=== PATIENT | female | born 1945 | race Hispanic/Latino ===

== ENCOUNTER 2018-02-14 06:39 | Day surgery (SDC) | payer MEDICARE ==
[2018-02-13 12:28] VITALS: BMI 28.6
[2018-02-14] MEDS ORDERED: Midazolam 2 MG/2 ML VIAL ONE (08:55)
[2018-02-14] MEDS ORDERED: Propofol 10 mg/ml Inj (20 ML) ONE ×2 (08:55→10:13)
[2018-02-14 11:14] VITALS: TEMP 97.8
[2018-02-14 12:24] VITALS: BP 133/71; PULSE 80; RESP 17; O2SAT 96
== END 2018-02-14 12:05 | disposition home or self-care (01) ==
LOC: C.ENDO 06:39
PROVIDERS: ATTEND Internal Medicine Gastroenterology
DX: Z12.11 Encounter for screening for malignant neoplasm of colon (principal); K64.1 Second degree hemorrhoids; K57.30 Diverticulosis of large intestine without perforation or abscess without bleeding; K63.5 Polyp of colon; D12.5 Benign neoplasm of sigmoid colon; D12.3 Benign neoplasm of transverse colon; E11.9 Type 2 diabetes mellitus without complications; I10 Essential (primary) hypertension; E78.5 Hyperlipidemia, unspecified; Z79.84 Long term (current) use of oral hypoglycemic drugs; Z79.899 Other long term (current) drug therapy; I25.2 Old myocardial infarction; E55.9 Vitamin D deficiency, unspecified; Z86.010 Personal history of colon polyps; Z87.891 Personal history of nicotine dependence
CPT/HCPCS: 45380; 45381; 45385; 82948; 88305; J2001; J2250; J2704

== ENCOUNTER 2018-05-30 07:54 | Day surgery (SDC) | payer MEDICARE ==
[2018-02-13 12:33] VITALS: BMI 28.6
[2018-05-30] MEDS ORDERED: Sodium Chloride 0.9% 500 ML IV ONE (08:58)
--- NOTE | 2018-05-30 09:48 | CP.SDSHP ---
Same Day Surgery H & P - History Proposed Procedure: colonoscopy Pre-Op Diagnosis: history of colon polyps - Previous Medical/Surgical History Cardiac: Hypertension Endocrine/Metabolic: Diabetes Comments: hyperlipidemia - Allergies Allergies: Allergies No Known Allergies Allergy (Verified 05/30/18 08:14) - Physical Exam General Appearance: NAD Vital Signs: Vital Signs 05/30/18 08:14 Temperature 99.6 F Pulse Rate 96 H Respiratory 17 Rate Blood Pressure 136/74 O2 Sat by Pulse 97 Oximetry Mental Status: Alert & Oriented x3 Neuro: WNL Heart: WNL Lungs: WNL GI: WNL - {Optional Preform as Required} Abdomen: WNL - Impression Pt. Evaluated Today:Candidate for Anesthesia & Procedure: Yes - Date & Time Date: 05/30/18 Time: 09:48 Short Stay Discharge - Short Stay Discharge Admitting Diagnosis/Reason for Visit: H/O COLON POLYPS Disposition: HOME/ ROUTINE
[2018-05-30] MEDS ORDERED: Propofol 10 mg/ml Inj (20 ML) ONE ×4 (10:47→11:36)
[2018-05-30 12:03] VITALS: TEMP 97.1
[2018-05-30 12:43] VITALS: RESP 12; O2SAT 99
[2018-05-30 13:16] VITALS: BP 131/55; PULSE 84
== END 2018-05-30 13:00 | disposition home or self-care (01) ==
LOC: C.ENDO 07:54
PROVIDERS: ATTEND Internal Medicine Gastroenterology
DX: D12.5 Benign neoplasm of sigmoid colon (principal); Z86.010 Personal history of colon polyps; E11.9 Type 2 diabetes mellitus without complications; I10 Essential (primary) hypertension; K57.90 Diverticulosis of intestine, part unspecified, without perforation or abscess without bleeding; K64.8 Other hemorrhoids
CPT/HCPCS: 45380; 45385; 82948; 88305; J2704; J3010; J7030

== ENCOUNTER 2018-06-03 19:39 | Observation (INO) | payer MEDICARE ==
[2018-06-03 19:41] VITALS: BMI 28.6
--- NOTE | 2018-06-03 20:31 | C.PDOC ---
History Of Present Illness Patient is a 72 year old female, with a PMHx of HTN, HLD, diabetes, DC after D+C who presents to the ED c/o bloody stool that began today. Patient is s/p 4 days colonoscopy with polyp removal. She describes the stool as maroonish and bright red since this morning. She notes crampy abdominal pain but non currently. She denies any blood thinners, falls, trauma, fevers, chills, sweats, recent antibiotics, or diarrhea. Time Seen by Provider: 06/03/18 20:31 Chief Complaint (Nursing): Abdominal Pain History Per: Patient History/Exam Limitations: no limitations Onset/Duration Of Symptoms: Hrs Current Symptoms Are (Timing): Still Present Associated Symptoms: denies: Fever, Chills, Diarrhea Recent travel outside of the [place]: No Additional History Per: Patient Past Medical History Reviewed: Historical Data, Nursing Documentation, Vital Signs Vital Signs: Last Vital Signs Temp 98.7 F 06/03/18 20:04 Pulse 99 H 06/03/18 20:04 Resp 18 06/03/18 20:04 BP 135/85 06/03/18 20:04 Pulse Ox 97 06/03/18 20:04 - Medical History PMH: Asthma (NEVER HOSPITALIZED), Colonic Polyps, Depression, Diabetes, HTN, Hypercholesterolemia Denies: Chronic Kidney Disease Surgical History: Endoscopy Family History: States: No Known Family Hx - Social History Hx Alcohol Use: No Hx Substance Use: No - Immunization History Hx Tetanus Toxoid Vaccination: No Hx Influenza Vaccination: Yes Hx Pneumococcal Vaccination: No Review Of Systems Constitutional: Negative for: Fever, Chills, Sweats, Weakness, Malaise Eyes: Negative for: Pain, Vision Change, Conjunctivae Inflammation ENT: Negative for: Ear Pain, Ear Discharge, Nose Pain, Nose Congestion Cardiovascular: Negative for: Chest Pain, Palpitations, Paroxysmal Noc. Dyspnea Respiratory: Negative for: Cough, Shortness of Breath, SOB with Excertion Gastrointestinal: Positive for: Hematochezia. Negative for: Diarrhea Genitourinary: Negative for: Dysuria, Frequency, Incontinence Neurological: Negative for: Weakness, Numbness Physical Exam - Physical Exam Appears: Well, Non-toxic, No Acute Distress Skin: Warm, Dry Head: Atraumatic, Normacephalic Eye(s): bilateral: Normal Inspection, PERRL, EOMI Nose: Normal Oral Mucosa: Moist Tongue: Normal Appearing Lips: Normal Appearing Throat: Normal, No Erythema, No Exudate, No Drooling Neck: Normal, Normal ROM, Trachea Midline, Supple, Other (No meningeal sign's) Chest: Symmetrical Cardiovascular: Rhythm Regular, No Friction Rub Respiratory: No Rales, No Rhonchi, No Wheezing Gastrointestinal/Abdominal: Soft, No Tenderness, No Distention, No Guarding Rectal: Rectal Tone (normal), Maroon Stool, No Hemorrhoids, No Mass, No Tenderness Back: Normal Inspection, No CVA Tenderness, No Vertebral Tenderness Extremity: Bilateral: Normal Color And Temperature Pulses: Left Dorsalis Pedis: Normal, Right Dorsalis Pedis: Normal Neurological/Psych: Oriented x3, Normal Speech, Normal Cognition Gait: Steady ED Course And Treatment - Laboratory Results Result Diagrams: 06/03/18 20:42 06/03/18 20:42 O2 Sat by Pulse Oximetry: 97 (on RA) Pulse Ox Interpretation: Normal Medical Decision Making Medical Decision Making: Patient is a 72 year old female, with a PMHx of HTN, HLD, diabetes, who presents to the ED c/o bloody stool that began today. Patient is s/p 4 days colonoscopy with polyp removal. Maroon stool noted on rectal exam. Abd non-ttp but pt did note some crampy abdominal pain earlier today. No back pain. No fall or trauma. Plan: Urinalysis Labs VBG IV Fluids Impression: Colon Bleed 2129 appreciate consult w/ GI fellow on for Dr. Sunshine: OBS and GI will see in AM Appreciate consult w/ Dr. Moore (HOSP)- to admit to his service, I endorsed pending CT results pt in NAD, agreeable to plan protonix bolus and drip ordered. Disposition - Disposition Disposition Time: 21:38 Condition: GOOD Forms: [employer] (Omani) - Clinical Impression Clinical Impression: GI bleed
[2018-06-03 20:53] LABS: BASO # 0.1 K/uL (0.0-0.2); BASO % 0.7 % (0.0-2.0); EOS # 0.1 K/uL (0.0-0.7); EOS % 0.8 % (0.0-4.0); LYMPH # 1.9 K/uL (1.0-4.3); LYMPH % 24.5 % (20.0-40.0); MEAN CELL VOLUME 88.2 fL (81.0-99.0); MEAN CORPUSCULAR HEMOGLOBIN 29.2 pg (27.0-31.0); MEAN CORPUSCULAR HGB CONC 33.1 g/dL (33.0-37.0); MEAN PLATELET VOLUME 8.6 fL (7.2-11.7); MONO # 0.6 K/uL (0.0-0.8); MONO % 7.6 % (0.0-10.0); NEUT # 5.1 K/uL (1.8-7.0); NEUT % 66.4 % (50.0-75.0); NRBC % 0.2 % (0.0-2.0); RBC 4.81 Mil/uL (3.80-5.20); WHITE BLOOD COUNT 7.7 K/uL (4.8-10.8)
[2018-06-03 21:01] LABS: INR 1.1; PROTHROMBIN TIME 12.4 SECONDS (9.7-12.2)
[2018-06-03 21:02] LABS: VENOUS BLOOD GAS BASE EXCESS -3.6 mmol/L (0.0-2.0); VENOUS BLOOD GAS PCO2 47 mmHg (40-60); VENOUS BLOOD GAS PO2 23 mm/Hg (30-55)
[2018-06-03 21:05] LABS: ALB/GLOB RATIO 1.3 (1.0-2.1); ALBUMIN 4.1 g/dL (3.5-5.0); ALT/SGPT 65 U/L (9-52); AST/SGOT 49 U/L (14-36); BLOOD UREA NITROGEN 21 mg/dL (7-17); CALCIUM 9.6 mg/dl (8.6-10.4); GFR NON-AFRICAN AMERICAN > 60; LIPASE 176 U/L (23-300)
[2018-06-03] MEDS ORDERED: Sodium Chloride 0.9% 1,000 ML ONE (21:48)
[2018-06-03] MEDS: Sodium Chloride 0.9% 1,000 ML IV SCH (21:52)
[2018-06-03] MEDS ORDERED: Iohexol 300 100 ML IJ ONE (22:04)
[2018-06-03] MEDS: Pantoprazole 80 MG in Sodium Chloride 0.9% 100 ML IVP SCH (22:04)
--- NOTE | 2018-06-03 22:10 | CP.PCM.HP ---
<Christen Anderson P - Last Filed: 06/04/18 05:47> History of Present Illness - History of Present Illness History of Present Illness: Medicine H&P for Dr. Moore CC: Bloody bowel movement HPI: 72 year old female with PMHx of DM, previous NH, asthma presents to ED for evaluation of an episode of bloody diarrhea prior to arrival. Patient states half of the toilet bowel was filled with blood. Associated symptoms include mild lower abdominal cramping, weakness, and dizziness. She also had one episode of vomiting, non bloody, non bilious. Patient denies fever, chills, chest pain, palpitations, and shortness of breath. Patient is status post colonoscopy on 05/30/[address] Sunshine. She called his office and was told to come into ED. PMHx: DM, NH in 1993, asthma PSHx: Colonsocopy x2 with polypectomy, diagnostic cardiac catheterization Meds: Sitagliptin, metformin 50-1000 BID, pravastatin 20mg HS, Multivitamin, Lisinopril 2.5mg daily, Glimepiride 4mg PO BID, duloxetine 50mg daily, Farxiga 5mg PO daily, Vitamin D3 5000u daily, Albuterol INH PRN Allergies: Denies FamHx: Parents-DM, alcoholism, father-stroke, mother heart disease SocHx: former smoker- 2-3ppd for 25 years, denies alcohol and illicit drugs. Lives with her dog, Retired realtor. PMD: Dr. Ervin Review of Systems: -Gen: No fever, No chills, No headache, No lethargy, + weakness. -HEENT: + dizziness, No change in vision, No change in hearing, No sore throat, No dysphagia, No nasal congestion, No mucous. -Cardio: No chest pain, No palpitations, No lower extremity edema, No orthopnea. -Resp: No cough, No dyspnea, No hemoptysis, No wheezing, No pain on inspiration. -GI: + abdominal pain, + nausea/vomiting, + diarrhea, + hematochezia, No hematemesis. -: No dysuria, No urinary freq, No incontinence, No hematuria, No change in urinary stream. -MSK: No back pain, No muscle weakness, No radiating pain. -Skin: No itching, No rash, No lesions. -Neuro: No confusion, No numbness, No tingling, No focal weakness, No radicular pain, No syncope. -Psych: No anxiety, No depression, No H/I, No S/I, No hallucinations. Present on Admission - Present on Admission Any Indicators Present on Admission: No Past Patient History - Past Medical History & Family History Past Medical History?: Yes - Past Social History Smoking Status: Never Smoked - CARDIAC Hx Hypercholesterolemia: Yes Hx Hypertension: Yes - PULMONARY Hx Asthma: Yes (NEVER HOSPITALIZED) - NEUROLOGICAL Hx Neurological Disorder: No - HEENT Hx HEENT Problems: No - RENAL Hx Chronic Kidney Disease: No - ENDOCRINE/METABOLIC Hx Endocrine Disorders: Yes Hx Diabetes Mellitus Type 2: Yes - HEMATOLOGICAL/ONCOLOGICAL Hx Blood Disorders: No - INTEGUMENTARY Hx Dermatological Problems: No - MUSCULOSKELETAL/RHEUMATOLOGICAL Hx Musculoskeletal Disorders: No - GASTROINTESTINAL Hx Gastrointestinal Disorders: Yes Hx Ulcer: Yes (GASTRIC ULCER) Other/Comment: HX: LPM AND ABD. APIN - GENITOURINARY/GYNECOLOGICAL Hx Genitourinary Disorders: Yes Hx Urinary Tract Infection: Yes (NONE RECENTLY) - PSYCHIATRIC Hx Depression: Yes Hx Substance Use: No - SURGICAL HISTORY Hx Surgeries: Yes Hx Cardiac Catheterization: Yes Hx Dilation and Curettage: Yes - ANESTHESIA Hx Anesthesia: Yes Hx Anesthesia Reactions: Yes (VOMITING/heart attack following D&C) Hx Malignant Hyperthermia: No Meds Allergies/Adverse Reactions: Allergies Allergy/AdvReac Type Severity Reaction Status Date / Time No Known Allergies Allergy Verified 06/03/18 20:08 Physical Exam - Constitutional Appears: Non-toxic, No Acute Distress - Head Exam Head Exam: ATRAUMATIC, NORMOCEPHALIC - Eye Exam Eye Exam: EOMI, Normal appearance, PERRL Additional comments: No conjunctival pallor - ENT Exam ENT Exam: Mucous Membranes Moist - Neck Exam Neck exam: Positive for: Full Rom, Normal Inspection - Respiratory Exam Respiratory Exam: Chest Wall Tenderness, Clear to Auscultation Bilateral, NORMAL BREATHING PATTERN. absent: Rales, Rhonchi, Wheezes - Cardiovascular Exam Cardiovascular Exam: Tachycardia, +S1, +S2 - GI/Abdominal Exam GI & Abdominal Exam: Normal Bowel Sounds, Soft. absent: Distended, Guarding, Rebound, Tenderness - Rectal Exam Rectal Exam: Black Stool (maroon/black) - Extremities Exam Extremities exam: Positive for: full ROM, normal capillary refill, normal inspection, pedal pulses present. Negative for: calf tenderness, pedal edema, tenderness - Neurological Exam Neurological exam: Alert, CN II-XII Intact, Oriented x3 - Psychiatric Exam Psychiatric exam: Normal Affect, Normal Mood - Skin Skin Exam: Dry, Normal Color, Warm Results - Vital Signs Recent Vital Signs: Last Vital Signs Temp 98.7 F 06/03/18 20:04 Pulse 99 H 06/03/18 20:04 Resp 18 06/03/18 20:04 BP 135/85 06/03/18 20:04 Pulse Ox 97 06/03/18 21:39 - Labs Result Diagrams: 06/04/18 04:00 06/04/18 04:00 Labs: Laboratory Results - last 24 hr 06/03/18 06/03/18 06/03/18 20:42 20:42 20:42 WBC 7.7 RBC 4.81 Hgb 14.0 Hct 42.4 MCV 88.2 MCH 29.2 MCHC 33.1 RDW 13.0 Plt Count 279 MPV 8.6 Neut % (Auto) 66.4 Lymph % (Auto) 24.5 Stanton % (Auto) 7.6 Eos % (Auto) 0.8 Baso % (Auto) 0.7 Neut # (Auto) 5.1 Lymph # (Auto) 1.9 Stanton # (Auto) 0.6 Eos # (Auto) 0.1 Baso # (Auto) 0.1 PT 12.4 H INR 1.1 APTT 30 pO2 VBG pH VBG pCO2 VBG HCO3 VBG Total CO2 VBG O2 Sat (Calc) VBG Base Excess VBG Potassium Glucose Lactate Sodium 134 Potassium 4.7 Chloride 99 Carbon Dioxide 23 Anion Gap 17 BUN 21 H Creatinine 0.6 L Est GFR ( Amer) > 60 Est GFR (Non-Af Amer) > 60 POC Glucose (mg/dL) Random Glucose 340 H Calcium 9.6 Total Bilirubin 0.5 AST 49 H ALT 65 H Alkaline Phosphatase 104 Total Protein 7.1 Albumin 4.1 Globulin 3.0 Albumin/Globulin Ratio 1.3 Lipase 176 Venous Blood Potassium Stool Occult Blood Blood Type Antibody Screen 06/03/18 06/03/18 06/03/18 20:42 20:48 20:55 WBC RBC Hgb Hct MCV MCH MCHC RDW Plt Count MPV Neut % (Auto) Lymph % (Auto) Stanton % (Auto) Eos % (Auto) Baso % (Auto) Neut # (Auto) Lymph # (Auto) Stanton # (Auto) Eos # (Auto) Baso # (Auto) PT INR APTT pO2 23 L VBG pH 7.30 L VBG pCO2 47 VBG HCO3 20.4 VBG Total CO2 24.5 VBG O2 Sat (Calc) 44.1 VBG Base Excess -3.6 L VBG Potassium 4.3 Glucose 278 H Lactate 1.6 Sodium 138.0 Potassium Chloride 105.0 Carbon Dioxide Anion Gap BUN Creatinine Est GFR ( Amer) Est GFR (Non-Af Amer) POC Glucose (mg/dL) 315 H Random Glucose Calcium Total Bilirubin AST ALT Alkaline Phosphatase Total Protein Albumin Globulin Albumin/Globulin Ratio Lipase Venous Blood Potassium 4.3 Stool Occult Blood Blood Type O POSITIVE Antibody Screen Negative 06/03/18 21:12 WBC RBC Hgb Hct MCV MCH MCHC RDW Plt Count MPV Neut % (Auto) Lymph % (Auto) Stanton % (Auto) Eos % (Auto) Baso % (Auto) Neut # (Auto) Lymph # (Auto) Stanton # (Auto) Eos # (Auto) Baso # (Auto) PT INR APTT pO2 VBG pH VBG pCO2 VBG HCO3 VBG Total CO2 VBG O2 Sat (Calc) VBG Base Excess VBG Potassium Glucose Lactate Sodium Potassium Chloride Carbon Dioxide Anion Gap BUN Creatinine Est GFR ( Amer) Est GFR (Non-Af Amer) POC Glucose (mg/dL) Random Glucose Calcium Total Bilirubin AST ALT Alkaline Phosphatase Total Protein Albumin Globulin Albumin/Globulin Ratio Lipase Venous Blood Potassium Stool Occult Blood Positive H Blood Type Antibody Screen Assessment & Plan - Assessment and Plan (Free Text) Assessment: 72 year old female with PMHx of DM, previous NH, asthma presents to ED for evaluation of an episode of bloody diarrhea Plan: GI bleed Stool occult blood + Hemoglobin 14 Type and screen NPO Protonix drip IVF @ 100 mls/hr GI consult Hx DM Insulin SS Hold home meds Crestor 5mg PO daily lisinopril 2.5mg PO daily Hx Asthma Albuterol 2puff PRN Hx depression Duloxetine 60mg daily PPx Protonix drip SCD VTE contraindicated, GI bleed Discussed with Dr. Teresa Anderson, PGY-1 <Romeo Moore Satinder - Last Filed: 06/04/18 06:23> Results - Vital Signs Recent Vital Signs: Last Vital Signs Temp 98.1 F 06/04/18 06:09 Pulse 93 H 06/04/18 06:09 Resp 18 06/04/18 06:09 BP 127/71 06/04/18 06:09 Pulse Ox 94 L 06/04/18 06:09 - Labs Result Diagrams: 06/04/18 04:00 06/04/18 04:00 Labs: Laboratory Results - last 24 hr 06/03/18 06/03/18 06/03/18 20:42 20:42 20:42 WBC 7.7 RBC 4.81 Hgb 14.0 Hct 42.4 MCV 88.2 MCH 29.2 MCHC 33.1 RDW 13.0 Plt Count 279 MPV 8.6 Neut % (Auto) 66.4 Lymph % (Auto) 24.5 Stanton % (Auto) 7.6 Eos % (Auto) 0.8 Baso % (Auto) 0.7 Neut # (Auto) 5.1 Lymph # (Auto) 1.9 Stanton # (Auto) 0.6 Eos # (Auto) 0.1 Baso # (Auto) 0.1 PT 12.4 H INR 1.1 APTT 30 pO2 VBG pH VBG pCO2 VBG HCO3 VBG Total CO2 VBG O2 Sat (Calc) VBG Base Excess VBG Potassium Glucose Lactate Sodium 134 Potassium 4.7 Chloride 99 Carbon Dioxide 23 Anion Gap 17 BUN 21 H Creatinine 0.6 L Est GFR ( Amer) > 60 Est GFR (Non-Af Amer) > 60 POC Glucose (mg/dL) Random Glucose 340 H Calcium 9.6 Total Bilirubin 0.5 AST 49 H ALT 65 H Alkaline Phosphatase 104 Total Protein 7.1 Albumin 4.1 Globulin 3.0 Albumin/Globulin Ratio 1.3 Lipase 176 Venous Blood Potassium Stool Occult Blood Blood Type Antibody Screen 06/03/18 06/03/18 06/03/18 20:42 20:48 20:55 WBC RBC Hgb Hct MCV MCH MCHC RDW Plt Count MPV Neut % (Auto) Lymph % (Auto) Stanton % (Auto) Eos % (Auto) Baso % (Auto) Neut # (Auto) Lymph # (Auto) Stanton # (Auto) Eos # (Auto) Baso # (Auto) PT INR APTT pO2 23 L VBG pH 7.30 L VBG pCO2 47 VBG HCO3 20.4 VBG Total CO2 24.5 VBG O2 Sat (Calc) 44.1 VBG Base Excess -3.6 L VBG Potassium 4.3 Glucose 278 H Lactate 1.6 Sodium 138.0 Potassium Chloride 105.0 Carbon Dioxide Anion Gap BUN Creatinine Est GFR ( Amer) Est GFR (Non-Af Amer) POC Glucose (mg/dL) 315 H Random Glucose Calcium Total Bilirubin AST ALT Alkaline Phosphatase Total Protein Albumin Globulin Albumin/Globulin Ratio Lipase Venous Blood Potassium 4.3 Stool Occult Blood Blood Type O POSITIVE Antibody Screen Negative 06/03/18 06/04/18 06/04/18 21:12 01:54 04:00 WBC 5.8 RBC 4.44 Hgb 13.1 Hct 38.5 MCV 86.8 MCH 29.4 MCHC 33.9 RDW 13.1 Plt Count 253 MPV 7.9 Neut % (Auto) 49.0 L Lymph % (Auto) 39.1 Stanton % (Auto) 10.2 H Eos % (Auto) 0.2 Baso % (Auto) 1.5 Neut # (Auto) 2.9 Lymph # (Auto) 2.3 Stanton # (Auto) 0.6 Eos # (Auto) 0.0 Baso # (Auto) 0.1 PT INR APTT pO2 VBG pH VBG pCO2 VBG HCO3 VBG Total CO2 VBG O2 Sat (Calc) VBG Base Excess VBG Potassium Glucose Lactate Sodium Potassium Chloride Carbon Dioxide Anion Gap BUN Creatinine Est GFR ( Amer) Est GFR (Non-Af Amer) POC Glucose (mg/dL) 249 H Random Glucose Calcium Total Bilirubin AST ALT Alkaline Phosphatase Total Protein Albumin Globulin Albumin/Globulin Ratio Lipase Venous Blood Potassium Stool Occult Blood Positive H Blood Type Antibody Screen 06/04/18 04:00 WBC RBC Hgb Hct MCV MCH MCHC RDW Plt Count MPV Neut % (Auto) Lymph % (Auto) Stanton % (Auto) Eos % (Auto) Baso % (Auto) Neut # (Auto) Lymph # (Auto) Stanton # (Auto) Eos # (Auto) Baso # (Auto) PT INR APTT pO2 VBG pH VBG pCO2 VBG HCO3 VBG Total CO2 VBG O2 Sat (Calc) VBG Base Excess VBG Potassium Glucose Lactate Sodium 139 Potassium 4.6 Chloride 106 Carbon Dioxide 25 Anion Gap 13 BUN 18 H Creatinine 0.5 L Est GFR ( Amer) > 60 Est GFR (Non-Af Amer) > 60 POC Glucose (mg/dL) Random Glucose 218 H D Calcium 9.0 Total Bilirubin 0.6 AST 46 H ALT 61 H Alkaline Phosphatase 83 Total Protein 6.7 Albumin 3.8 Globulin 2.9 Albumin/Globulin Ratio 1.3 Lipase Venous Blood Potassium Stool Occult Blood Blood Type Antibody Screen Assessment & Plan - Date & Time Date: 06/04/18 (I have seen and examined the patient. I agree with the findings and plan of care as documented by Dr. Anderson. Patient with GI bleed, s/p colonoscopy. Consult to GI. Hemodynamically stable. NPO. Protonix. History of diabetes. NISS and accuchecks. Monitor for acute changes.) Time: 06:21 Attending/Attestation - Attestation I have personally seen and examined this patient.: Yes I have fully participated in the care of the patient.: Yes I have reviewed all pertinent clinical information: Yes
[2018-06-04] MEDS ORDERED: Dextrose 50% SYRINGE Inj (50 ml) IV PRN (00:31)
[2018-06-04] MEDS ORDERED: Glucagon Recombinant 1 mg Inj IM PRN ×2 (00:31→07:41)
[2018-06-04] MEDS: (Novolin R) Insulin Human Regular 100 units/ml vial SC SCH ×2 (01:57→08:50)
[2018-06-04] MEDS ORDERED: Albuterol HFA 90 mcg/actuation (8 g) INH PRN ×2 (03:01→07:42)
[2018-06-04 04:03] LABS: BASO # 0.1 K/uL (0.0-0.2); BASO % 1.5 % (0.0-2.0); EOS % 0.2 % (0.0-4.0); HEMOGLOBIN 13.1 g/dL (11.0-16.0); LYMPH # 2.3 K/uL (1.0-4.3); LYMPH % 39.1 % (20.0-40.0); MEAN CELL VOLUME 86.8 fL (81.0-99.0); MEAN CORPUSCULAR HEMOGLOBIN 29.4 pg (27.0-31.0); MEAN CORPUSCULAR HGB CONC 33.9 g/dL (33.0-37.0); MEAN PLATELET VOLUME 7.9 fL (7.2-11.7); MONO # 0.6 K/uL (0.0-0.8); MONO % 10.2 % (0.0-10.0); NEUT # 2.9 K/uL (1.8-7.0); NRBC % 0.1 % (0.0-2.0); RBC 4.44 Mil/uL (3.80-5.20); RED CELL DISTRIBUTION WIDTH 13.1 % (11.5-14.5); WHITE BLOOD COUNT 5.8 K/uL (4.8-10.8)
[2018-06-04 04:22] LABS: ALB/GLOB RATIO 1.3 (1.0-2.1); ALBUMIN 3.8 g/dL (3.5-5.0); ALT/SGPT 61 U/L (9-52); AST/SGOT 46 U/L (14-36); BLOOD UREA NITROGEN 18 mg/dL (7-17); GFR NON-AFRICAN AMERICAN > 60
[2018-06-04] MEDS: Pantoprazole 80 MG in Sodium Chloride 0.9% 100 ML IVP SCH (05:55)
--- NOTE | 2018-06-04 07:33 | CP.PCM.PN ---
<Adelina Alfaro - Last Filed: 06/04/18 16:20> Subjective - Date & Time of Evaluation Date of Evaluation: 06/04/18 Time of Evaluation: 07:33 - Subjective Subjective: PGY-1 Adelina Alfaro D.O. Medicine progress note for Dr. Jennings's service: Patient was seen and examined this morning. Patient says she feels fine. She denies any more BMs with blood since admission. She denies abdominal pain. She denies urinary symptoms, including dysuria and hematuria. She says that she has never had a blood transfusion before. She already spoke to GI, and she is amenable to endoscopy if further bleeding episodes. Objective - Vital Signs/Intake and Output Vital Signs (last 24 hours): Temp Pulse Resp BP Pulse Ox 98.1 F 93 H 18 127/71 94 L 06/04/18 06:09 06/04/18 06:09 06/04/18 06:09 06/04/18 06:09 06/04/18 06:09 - Medications Medications: Current Medications Albuterol (Ventolin Hfa 90 Mcg/Actuation (8 G)) 2 puff INH PRN PRN PRN Reason: Shortness of Breath Dextrose (Dextrose 50% Inj) 0 ml IV STAT PRN; Protocol PRN Reason: Hypoglycemia Protocol Dextrose (Glutose 15) 0 gm PO ONCE PRN; Protocol PRN Reason: Hypoglycemia Protocol Duloxetine HCl (Cymbalta) 60 mg PO DAILY JOY Glucagon (Glucagen Diagnostic Kit) 0 mg IM STAT PRN; Protocol PRN Reason: Hypoglycemia Protocol Sodium Chloride (Sodium Chloride 0.9%) 1,000 mls @ 100 mls/hr IV .Q10H JOY Last Admin: 06/03/18 21:52 Dose: 100 mls/hr Pantoprazole Sodium 80 mg/ (Sodium Chloride) 100 mls @ 10 mls/hr IVP .Q10H JOY Last Admin: 06/04/18 05:55 Dose: 10 mls/hr Dextrose (Dextrose 5% In Water 1000 Ml) 1,000 mls @ 0 mls/hr IV .Q0M PRN; Protocol PRN Reason: Hypoglycemia Protocol Insulin Human Regular (Novolin R) 0 unit SC Q6H JOY; Protocol Last Admin: 06/04/18 01:57 Dose: Not Given Lisinopril (Zestril) 2.5 mg PO DAILY JOY Rosuvastatin Calcium (Crestor) 5 mg PO HS JOY - Labs Labs: 06/04/18 04:00 06/04/18 04:00 PT 12.4 SECONDS (9.7-12.2) H 06/03/18 20:42 INR 1.1 06/03/18 20:42 APTT 30 SECONDS (21-34) 06/03/18 20:42 - Constitutional Appears: Non-toxic, No Acute Distress - Head Exam Head Exam: ATRAUMATIC, NORMAL INSPECTION - Eye Exam Eye Exam: EOMI, Normal appearance - ENT Exam ENT Exam: Mucous Membranes Moist - Respiratory Exam Respiratory Exam: Clear to Ausculation Bilateral, NORMAL BREATHING PATTERN - Cardiovascular Exam Cardiovascular Exam: RRR, +S1, +S2 - GI/Abdominal Exam GI & Abdominal Exam: Soft. absent: Distended, Tenderness - Extremities Exam Extremities Exam: Normal Inspection - Neurological Exam Neurological Exam: Alert, Awake, CN II-XII Intact, Oriented x3 - Psychiatric Exam Psychiatric exam: Normal Affect, Normal Mood - Skin Skin Exam: Dry, Normal Color, Warm. absent: Pallor Assessment and Plan - Assessment and Plan (Free Text) Assessment: Patient is a 72 year old female with T2DM, previous IN, and asthma who presented with bloody diarrhea. Patient had a colonoscopy on 05/30/18 for polyp removal after a screening colonoscopy was unsuccessful. Plan: GI bleed - CT A/P: no acute findings - Stool occult blood positive - Hgb 14--> 12 over 24 hrs - Repeat CBC at 10 PM - Transfuse PRN - Monitor on telemetry - Type and screen - Clear liquid diet - Protonix drip--> Protonix 40 mg IV Q12H - NS @ 100 cc/hr - GI consulted (Jong)- consider scope if continued bleeding Hypertension, chronic - Vitals Q6H - Hold Lisinopril Type 2 diabetes mellitus, chronic - Accuchecks ACHS - Range 170-310 - Hypoglycemia protocol - ISS - Hold home meds - Crestor 5 mg PO QHS Asthma, mild intermittent, chronic - CXR: no active disease - Duoneb Q6H PRN Depression, chronic - Duloxetine 60 mg PO daily Ppx: VTE: SCD, chemical anticoagulation contraindicated in setting of bleed GI: Protonix 40 mg IV Q12H Diet: Clear liquids Case discussed with attending, Dr. Jennings. <Ankita Jennings V - Last Filed: 06/04/18 19:38> Objective - Vital Signs/Intake and Output Vital Signs (last 24 hours): Temp Pulse Resp BP Pulse Ox 98.7 F 99 H 20 139/64 95 06/04/18 15:40 06/04/18 17:02 06/04/18 15:40 06/04/18 15:40 06/04/18 15:40 Intake and Output: 06/04/18 06/05/18 18:59 06:59 Intake Total 800 Balance 800 - Medications Medications: Current Medications Albuterol/Ipratropium (Duoneb 3 Mg/0.5 Mg (3 Ml) Ud) 3 ml INH RQ6 PRN PRN Reason: Shortness of Breath Dextrose (Dextrose 50% Inj) 0 ml IV STAT PRN; Protocol PRN Reason: Hypoglycemia Protocol Dextrose (Glutose 15) 0 gm PO ONCE PRN; Protocol PRN Reason: Hypoglycemia Protocol Dextrose (Dextrose 50% Inj) 0 ml IVP .STAT PRN; Protocol PRN Reason: Hypoglycemia Protocol Dextrose (Glutose 15) 0 gm PO .ONCE PRN; Protocol PRN Reason: Hypoglycemia Protocol Duloxetine HCl (Cymbalta) 60 mg PO DAILY [facility] Last Admin: 06/04/18 11:55 Dose: Not Given Glucagon (Glucagen Diagnostic Kit) 0 mg IM STAT PRN; Protocol PRN Reason: Hypoglycemia Protocol Glucagon (Glucagen Diagnostic Kit) 0 mg IM .STAT PRN; Protocol PRN Reason: Hypoglycemia Protocol Sodium Chloride (Sodium Chloride 0.9%) 1,000 mls @ 100 mls/hr IV .Q10H JOY Last Admin: 06/04/18 07:40 Dose: 100 mls/hr Dextrose (Dextrose 5% In Water 1000 Ml) 1,000 mls @ 0 mls/hr IV .Q0M PRN; Protocol PRN Reason: Hypoglycemia Protocol Dextrose (Dextrose 5% In Water 1000 Ml) 1,000 mls @ 0 mls/hr IV .Q0M PRN; Protocol PRN Reason: Hypoglycemia Protocol Insulin Aspart (Novolog) 0 unit SC ACHS JOY; Protocol Last Admin: 06/04/18 17:07 Dose: Not Given Lisinopril (Zestril) 2.5 mg PO DAILY [facility] Pantoprazole Sodium (Protonix Inj) 40 mg IVP Q12H [facility] Last Admin: 06/04/18 11:57 Dose: 40 mg Pneumococcal Polyvalent Vaccine (Pneumovax 23 Vaccine) 0.5 ml IM .ONCE ONE Stop: 06/06/18 10:01 Rosuvastatin Calcium (Crestor) 5 mg PO HS [facility] - Labs Labs: 06/04/18 15:21 06/04/18 04:00 PT 12.4 SECONDS (9.7-12.2) H 06/03/18 20:42 INR 1.1 06/03/18 20:42 APTT 30 SECONDS (21-34) 06/03/18 20:42 Attending/Attestation - Attestation I have personally seen and examined this patient.: Yes I have fully participated in the care of the patient.: Yes I have reviewed all pertinent clinical information, including history, physical exam and plan: Yes Notes (Text): Patient seen and examined in the ED while awaiting a bed. Patient reports she is doing okay. Patient reports she had to call the office of Dr. Sunshine because she noted she had bleeding wherein stool was caked in blood. Patient has had recent colonoscopy and prior history of ulcer. Patient reports she had an IN in 1993, but had recent workup with cardiology noted no acute abnormalities. She does not take any aspirin nor plavix because of her ulcer history. Discussed with GI fellow, start diabetic clears and protonix 40mg IV Q12. Patient was consented for blood transfusion if H/H drops. Assessment/Plan 1. GI bleed Assessment/Plan * GI Dr. Sunshine on case help appreciated * Stool occult blood positive * Hgb 14--> 12 over 24 hrs * Monitor on telemetry * Type and screen * Clear liquid * Protonix 40 mg IV Q12H * NS @ 100 cc/hr * CT abdomen/pelvis (06/04/18): hepatomegaly with probable small cyst left lobe liver. 2.3 cm right adrenal mass for which follow-up nonemergent MRI of adrenal gland recommended. Diverticulosis without radiographic evidence of acute diverticulitis. Rule out enteritis. Presume hyperdense left renal cyst. 2. Hypertension, chronic Assessment/Plan * held kiran inhibitor in light of GI bleed 3. Type 2 diabetes mellitus, chronic Assessment/Plan * Accuchecks Q6H * Hypoglycemia protocol * Novolog subq 6H * Diabetic clears * Crestor 5 mg PO QHS 4. Asthma, mild intermittent, chronic Assessment/Plan * CXR: no active disease * Duoneb Q6H PRN shortness of breathe 5. History of Depression, chronic Assessment/Plan * Duloxetine 60 mg PO daily 6. History of Prior IN in 1993 Assessment/Plan * myocardial stress test 2018: normal myocardial perfusion study without evide nce of ischemia, normal LVEF 7. Prophylactic measure * fall precautions * bed side commode * IV fluids * diabetic clears Disposition: patient to monitor H/H recommended for GI intervention but is refusing.
[2018-06-04] MEDS: Sodium Chloride 0.9% 1,000 ML IV SCH (07:40)
[2018-06-04] MEDS ORDERED: Dextrose 50% SYRINGE Inj (50 ml) IVP PRN (07:41)
[2018-06-04] MEDS ORDERED: Pantoprazole 80 MG in Sodium Chloride 0.9% 100 ML IVPB SCH (08:15)
--- NOTE | 2018-06-04 08:32 | CP.PCM.CON ---
<Gricel Parson - Last Filed: 06/04/18 17:31> History of Present Illness - History of Present Illness History of Present Illness: Gastroenterology Fellow/PGY6 Consult Note 72 year old female with PMH of HTN, HLD, Diabetes, and CKD presenting with rectal bleeding. Patient notes onset of urge to use the bathroom and abdominal cramps followed by two episodes of bright red blood per rectum with clots and two additional episodes 20 minutes later. Associated one episode of food/bilious vomiting after rectal bleeding. Denies lightheadedness, dizziness, chest pain, shortness of breath, abdominal pain, diarrhea, constipation, or unintentional weight loss. Denies NSAID or Aspirin use. Denies similar prior episodes of rectal bleeding. Recent colonoscopy 05/30/18 showed fair bowel prep, extensive diverticulosis, two 3-4mm semi-pedunculated hyperplastic ascending/sigmoid polyps with cold forceps resection, 2cm sessile tubular adenoma with saline- lift/hot snare resection, and Grade II internal hemorrhoids with recommended three year surveillance. Family History- denies stomach cancer, colon cancer Social History- denies tobacco, alcohol, illicit drug use Surgical History- D&C after [place] 1993 s/p cardiac cath Review of Systems - Review of Systems Review of Systems: 12-point review of systems negative except for as above Past Patient History - Past Medical History & Family History Past Medical History?: Yes - Past Social History Smoking Status: Never Smoked - CARDIAC Hx Hypercholesterolemia: Yes Hx Hypertension: Yes - PULMONARY Hx Asthma: Yes (NEVER HOSPITALIZED) - NEUROLOGICAL Hx Neurological Disorder: No - HEENT Hx HEENT Problems: No - RENAL Hx Chronic Kidney Disease: No - ENDOCRINE/METABOLIC Hx Endocrine Disorders: Yes Hx Diabetes Mellitus Type 2: Yes - HEMATOLOGICAL/ONCOLOGICAL Hx Blood Disorders: No - INTEGUMENTARY Hx Dermatological Problems: No - MUSCULOSKELETAL/RHEUMATOLOGICAL Hx Musculoskeletal Disorders: No - GASTROINTESTINAL Hx Gastrointestinal Disorders: Yes Hx Ulcer: Yes (GASTRIC ULCER) Other/Comment: HX: LPM AND ABD. APIN - GENITOURINARY/GYNECOLOGICAL Hx Genitourinary Disorders: Yes Hx Urinary Tract Infection: Yes (NONE RECENTLY) - PSYCHIATRIC Hx Depression: Yes Hx Substance Use: No - SURGICAL HISTORY Hx Surgeries: Yes Hx Cardiac Catheterization: Yes Hx Dilation and Curettage: Yes - ANESTHESIA Hx Anesthesia: Yes Hx Anesthesia Reactions: Yes (VOMITING/heart attack following D&C) Hx Malignant Hyperthermia: No Meds Allergies/Adverse Reactions: Allergies Allergy/AdvReac Type Severity Reaction Status Date / Time No Known Allergies Allergy Verified 06/03/18 20:08 - Medications Medications: Current Medications Albuterol (Ventolin Hfa 90 Mcg/Actuation (8 G)) 2 puff INH Q6H PRN PRN Reason: Shortness of Breath Dextrose (Dextrose 50% Inj) 0 ml IV STAT PRN; Protocol PRN Reason: Hypoglycemia Protocol Dextrose (Glutose 15) 0 gm PO ONCE PRN; Protocol PRN Reason: Hypoglycemia Protocol Dextrose (Dextrose 50% Inj) 0 ml IVP .STAT PRN; Protocol PRN Reason: Hypoglycemia Protocol Dextrose (Glutose 15) 0 gm PO .ONCE PRN; Protocol PRN Reason: Hypoglycemia Protocol Duloxetine HCl (Cymbalta) 60 mg PO DAILY JOY Glucagon (Glucagen Diagnostic Kit) 0 mg IM STAT PRN; Protocol PRN Reason: Hypoglycemia Protocol Glucagon (Glucagen Diagnostic Kit) 0 mg IM .STAT PRN; Protocol PRN Reason: Hypoglycemia Protocol Sodium Chloride (Sodium Chloride 0.9%) 1,000 mls @ 100 mls/hr IV .Q10H JOY Last Admin: 06/03/18 21:52 Dose: 100 mls/hr Dextrose (Dextrose 5% In Water 1000 Ml) 1,000 mls @ 0 mls/hr IV .Q0M PRN; Protocol PRN Reason: Hypoglycemia Protocol Dextrose (Dextrose 5% In Water 1000 Ml) 1,000 mls @ 0 mls/hr IV .Q0M PRN; Protocol PRN Reason: Hypoglycemia Protocol Pantoprazole Sodium 80 mg/ (Sodium Chloride) 100 mls @ 10 mls/hr IVPB .Q10H JOY Insulin Human Regular (Novolin R) 0 unit SC Q6H JOY; Protocol Last Admin: 06/04/18 01:57 Dose: Not Given Lisinopril (Zestril) 2.5 mg PO DAILY JOY Rosuvastatin Calcium (Crestor) 5 mg PO HS JOY Physical Exam - Constitutional Appears: Non-toxic, No Acute Distress - Head Exam Head Exam: ATRAUMATIC, NORMOCEPHALIC - Eye Exam Eye Exam: EOMI, PERRL. absent: Scleral icterus Pupil Exam: PERRL. absent: Miosis, Mydriatic - ENT Exam ENT Exam: Mucous Membranes Moist, Normal Oropharynx - Neck Exam Neck exam: Positive for: Full Rom, Normal Inspection - Respiratory Exam Respiratory Exam: Clear to Auscultation Bilateral. absent: Rales, Rhonchi, Wheezes - Cardiovascular Exam Cardiovascular Exam: Tachycardia, +S1, +S2. absent: Gallop, Rubs - GI/Abdominal Exam GI & Abdominal Exam: Normal Bowel Sounds, Soft. absent: Distended, Firm, Guarding, Organomegaly, Rebound, Rigid, Tenderness - Rectal Exam Additional comments: patient states "I had two rectal exams and would not like to have another. They had maroon stool and one was positive for blood on testing" - Extremities Exam Extremities exam: Positive for: normal inspection. Negative for: pedal edema - Neurological Exam Neurological exam: Alert, Oriented x3 - Psychiatric Exam Psychiatric exam: Normal Affect, Normal Mood - Skin Skin Exam: Dry, Intact, Normal Color, Warm Results - Vital Signs Recent Vital Signs: Last Vital Signs Temp 98.4 F 06/04/18 07:47 Pulse 93 H 06/04/18 07:47 Resp 20 06/04/18 07:47 BP 140/69 06/04/18 07:47 Pulse Ox 91 L 06/04/18 07:47 - Labs Result Diagrams: 06/04/18 15:21 06/04/18 04:00 Labs: Laboratory Results - last 24 hr 06/03/18 06/03/18 06/03/18 20:42 20:42 20:42 WBC 7.7 RBC 4.81 Hgb 14.0 Hct 42.4 MCV 88.2 MCH 29.2 MCHC 33.1 RDW 13.0 Plt Count 279 MPV 8.6 Neut % (Auto) 66.4 Lymph % (Auto) 24.5 [place] % (Auto) 7.6 Eos % (Auto) 0.8 Baso % (Auto) 0.7 Neut # (Auto) 5.1 Lymph # (Auto) 1.9 [place] # (Auto) 0.6 Eos # (Auto) 0.1 Baso # (Auto) 0.1 PT 12.4 H INR 1.1 APTT 30 pO2 VBG pH VBG pCO2 VBG HCO3 VBG Total CO2 VBG O2 Sat (Calc) VBG Base Excess VBG Potassium Glucose Lactate Sodium 134 Potassium 4.7 Chloride 99 Carbon Dioxide 23 Anion Gap 17 BUN 21 H Creatinine 0.6 L Est GFR ( Amer) > 60 Est GFR (Non-Af Amer) > 60 POC Glucose (mg/dL) Random Glucose 340 H Calcium 9.6 Total Bilirubin 0.5 AST 49 H ALT 65 H Alkaline Phosphatase 104 Total Protein 7.1 Albumin 4.1 Globulin 3.0 Albumin/Globulin Ratio 1.3 Lipase 176 Venous Blood Potassium Stool Occult Blood Blood Type Antibody Screen 06/03/18 06/03/18 06/03/18 20:42 20:48 20:55 WBC RBC Hgb Hct MCV MCH MCHC RDW Plt Count MPV Neut % (Auto) Lymph % (Auto) [place] % (Auto) Eos % (Auto) Baso % (Auto) Neut # (Auto) Lymph # (Auto) [place] # (Auto) Eos # (Auto) Baso # (Auto) PT INR APTT pO2 23 L VBG pH 7.30 L VBG pCO2 47 VBG HCO3 20.4 VBG Total CO2 24.5 VBG O2 Sat (Calc) 44.1 VBG Base Excess -3.6 L VBG Potassium 4.3 Glucose 278 H Lactate 1.6 Sodium 138.0 Potassium Chloride 105.0 Carbon Dioxide Anion Gap BUN Creatinine Est GFR ( Amer) Est GFR (Non-Af Amer) POC Glucose (mg/dL) 315 H Random Glucose Calcium Total Bilirubin AST ALT Alkaline Phosphatase Total Protein Albumin Globulin Albumin/Globulin Ratio Lipase Venous Blood Potassium 4.3 Stool Occult Blood Blood Type O POSITIVE Antibody Screen Negative 06/03/18 06/04/18 06/04/18 21:12 01:54 04:00 WBC 5.8 RBC 4.44 Hgb 13.1 Hct 38.5 MCV 86.8 MCH 29.4 MCHC 33.9 RDW 13.1 Plt Count 253 MPV 7.9 Neut % (Auto) 49.0 L Lymph % (Auto) 39.1 [place] % (Auto) 10.2 H Eos % (Auto) 0.2 Baso % (Auto) 1.5 Neut # (Auto) 2.9 Lymph # (Auto) 2.3 [place] # (Auto) 0.6 Eos # (Auto) 0.0 Baso # (Auto) 0.1 PT INR APTT pO2 VBG pH VBG pCO2 VBG HCO3 VBG Total CO2 VBG O2 Sat (Calc) VBG Base Excess VBG Potassium Glucose Lactate Sodium Potassium Chloride Carbon Dioxide Anion Gap BUN Creatinine Est GFR ( Amer) Est GFR (Non-Af Amer) POC Glucose (mg/dL) 249 H Random Glucose Calcium Total Bilirubin AST ALT Alkaline Phosphatase Total Protein Albumin Globulin Albumin/Globulin Ratio Lipase Venous Blood Potassium Stool Occult Blood Positive H Blood Type Antibody Screen 06/04/18 06/04/18 04:00 07:09 WBC RBC Hgb Hct MCV MCH MCHC RDW Plt Count MPV Neut % (Auto) Lymph % (Auto) [place] % (Auto) Eos % (Auto) Baso % (Auto) Neut # (Auto) Lymph # (Auto) [place] # (Auto) Eos # (Auto) Baso # (Auto) PT INR APTT pO2 VBG pH VBG pCO2 VBG HCO3 VBG Total CO2 VBG O2 Sat (Calc) VBG Base Excess VBG Potassium Glucose Lactate Sodium 139 Potassium 4.6 Chloride 106 Carbon Dioxide 25 Anion Gap 13 BUN 18 H Creatinine 0.5 L Est GFR ( Amer) > 60 Est GFR (Non-Af Amer) > 60 POC Glucose (mg/dL) 178 H Random Glucose 218 H D Calcium 9.0 Total Bilirubin 0.6 AST 46 H ALT 61 H Alkaline Phosphatase 83 Total Protein 6.7 Albumin 3.8 Globulin 2.9 Albumin/Globulin Ratio 1.3 Lipase Venous Blood Potassium Stool Occult Blood Blood Type Antibody Screen Assessment & Plan - Assessment and Plan (Free Text) Assessment: 72 year old female with PMH of HTN, HLD, Diabetes, and CKD presenting with rectal bleeding in setting of recent colonoscopy on 05/30/18 showing fair bowel prep, extensive diverticulosis, two 3-4mm semi-pedunculated hyperplastic ascending/sigmoid polyps with cold forceps resection, 2cm sessile tubular adenoma with saline-lift/hot snare resection, and Grade II internal hemorrhoids. CT A/P IV contrast preliminary read-mild small bowel thickening with fluid. Plan: -no further episodes of rectal bleeding since 630PM yesterday, 06/03/18 -rectal exam performed twice- maroon stool -patient wishes to not have a third rectal exam -H/H stable, slight decline in setting of IV fluid hydration and presented with rectal bleeding with potential lag of blood count due to GI blood loss -hemodynamically stable -extensive counselling provided of bleeding risk with polypectomy of 2cm lesion and potential for possible re-bleeding with recommendation for a second look at endoscopic clip placement if post-polypectomy ulcer noted for prevention of re- bleeding versus diverticular bleeding -discussion held with patient- expresses she feels well and does not want to repeat colonoscopy since rectal bleeding has not re-occurred -patient prefers to monitor for recurrent rectal bleeding and follow up with gastroenterology outpatient -patient is aware of risks of recurrent rectal bleeding and declines repeat procedure on current discussion -tolerating clear liquid diet for almost 24 hours since last episode of rectal bleeding -can advance to diet as tolerated from GI standpoint -will re-assess patient tomorrow and confirm no change on decision making to defer repeat colonoscopy -will follow clinical course <Jonathan Sunshine - Last Filed: 06/04/18 17:46> Meds - Medications Medications: Current Medications Albuterol/Ipratropium (Duoneb 3 Mg/0.5 Mg (3 Ml) Ud) 3 ml INH RQ6 PRN PRN Reason: Shortness of Breath Dextrose (Dextrose 50% Inj) 0 ml IV STAT PRN; Protocol PRN Reason: Hypoglycemia Protocol Dextrose (Glutose 15) 0 gm PO ONCE PRN; Protocol PRN Reason: Hypoglycemia Protocol Dextrose (Dextrose 50% Inj) 0 ml IVP .STAT PRN; Protocol PRN Reason: Hypoglycemia Protocol Dextrose (Glutose 15) 0 gm PO .ONCE PRN; Protocol PRN Reason: Hypoglycemia Protocol Duloxetine HCl (Cymbalta) 60 mg PO DAILY JOY Glucagon (Glucagen Diagnostic Kit) 0 mg IM STAT PRN; Protocol PRN Reason: Hypoglycemia Protocol Glucagon (Glucagen Diagnostic Kit) 0 mg IM .STAT PRN; Protocol PRN Reason: Hypoglycemia Protocol Sodium Chloride (Sodium Chloride 0.9%) 1,000 mls @ 100 mls/hr IV .Q10H JOY Last Admin: 06/04/18 07:40 Dose: 100 mls/hr Dextrose (Dextrose 5% In Water 1000 Ml) 1,000 mls @ 0 mls/hr IV .Q0M PRN; Protocol PRN Reason: Hypoglycemia Protocol Dextrose (Dextrose 5% In Water 1000 Ml) 1,000 mls @ 0 mls/hr IV .Q0M PRN; Protocol PRN Reason: Hypoglycemia Protocol Insulin Aspart (Novolog) 0 unit SC ACHS JOY; Protocol Last Admin: 06/04/18 17:07 Dose: Not Given Lisinopril (Zestril) 2.5 mg PO DAILY [facility] Pantoprazole Sodium (Protonix Inj) 40 mg IVP Q12H [facility] Last Admin: 06/04/18 11:57 Dose: 40 mg Pneumococcal Polyvalent Vaccine (Pneumovax 23 Vaccine) 0.5 ml IM .ONCE ONE Stop: 06/06/18 10:01 Rosuvastatin Calcium (Crestor) 5 mg PO [facility] Results - Vital Signs Recent Vital Signs: Last Vital Signs Temp 98.7 F 06/04/18 10:23 Pulse 99 H 06/04/18 17:02 Resp 14 06/04/18 10:23 BP 139/90 06/04/18 10:23 Pulse Ox 93 L 06/04/18 10:23 - Labs Result Diagrams: 06/04/18 15:21 06/04/18 04:00 Labs: Laboratory Results - last 24 hr 06/03/18 06/03/18 06/03/18 20:42 20:42 20:42 WBC 7.7 RBC 4.81 Hgb 14.0 Hct 42.4 MCV 88.2 MCH 29.2 MCHC 33.1 RDW 13.0 Plt Count 279 MPV 8.6 Neut % (Auto) 66.4 Lymph % (Auto) 24.5 [place] % (Auto) 7.6 Eos % (Auto) 0.8 Baso % (Auto) 0.7 Neut # (Auto) 5.1 Lymph # (Auto) 1.9 [place] # (Auto) 0.6 Eos # (Auto) 0.1 Baso # (Auto) 0.1 PT 12.4 H INR 1.1 APTT 30 pO2 VBG pH VBG pCO2 VBG HCO3 VBG Total CO2 VBG O2 Sat (Calc) VBG Base Excess VBG Potassium Glucose Lactate Sodium 134 Potassium 4.7 Chloride 99 Carbon Dioxide 23 Anion Gap 17 BUN 21 H Creatinine 0.6 L Est GFR ( Amer) > 60 Est GFR (Non-Af Amer) > 60 POC Glucose (mg/dL) Random Glucose 340 H Calcium 9.6 Total Bilirubin 0.5 AST 49 H ALT 65 H Alkaline Phosphatase 104 Total Protein 7.1 Albumin 4.1 Globulin 3.0 Albumin/Globulin Ratio 1.3 Lipase 176 Venous Blood Potassium Urine Color Urine Clarity Urine pH Ur Specific [place] Urine Protein Urine Glucose (UA) Urine Ketones Urine Blood Urine Nitrate Urine Bilirubin Urine Urobilinogen Ur Leukocyte Esterase Urine WBC (Auto) Urine RBC (Auto) Ur Squamous Epith Cells Stool Occult Blood Blood Type Antibody Screen 06/03/18 06/03/18 06/03/18 20:42 20:48 20:55 WBC RBC Hgb Hct MCV MCH MCHC RDW Plt Count MPV Neut % (Auto) Lymph % (Auto) [place] % (Auto) Eos % (Auto) Baso % (Auto) Neut # (Auto) Lymph # (Auto) [place] # (Auto) Eos # (Auto) Baso # (Auto) PT INR APTT pO2 23 L VBG pH 7.30 L VBG pCO2 47 VBG HCO3 20.4 VBG Total CO2 24.5 VBG O2 Sat (Calc) 44.1 VBG Base Excess -3.6 L VBG Potassium 4.3 Glucose 278 H Lactate 1.6 Sodium 138.0 Potassium Chloride 105.0 Carbon Dioxide Anion Gap BUN Creatinine Est GFR ( Amer) Est GFR (Non-Af Amer) POC Glucose (mg/dL) 315 H Random Glucose Calcium Total Bilirubin AST ALT Alkaline Phosphatase Total Protein Albumin Globulin Albumin/Globulin Ratio Lipase Venous Blood Potassium 4.3 Urine Color Urine Clarity Urine pH Ur Specific [place] Urine Protein Urine Glucose (UA) Urine Ketones Urine Blood Urine Nitrate Urine Bilirubin Urine Urobilinogen Ur Leukocyte Esterase Urine WBC (Auto) Urine RBC (Auto) Ur Squamous Epith Cells Stool Occult Blood Blood Type O POSITIVE Antibody Screen Negative 06/03/18 06/04/18 06/04/18 21:12 01:54 04:00 WBC 5.8 RBC 4.44 Hgb 13.1 Hct 38.5 MCV 86.8 MCH 29.4 MCHC 33.9 RDW 13.1 Plt Count 253 MPV 7.9 Neut % (Auto) 49.0 L Lymph % (Auto) 39.1 [place] % (Auto) 10.2 H Eos % (Auto) 0.2 Baso % (Auto) 1.5 Neut # (Auto) 2.9 Lymph # (Auto) 2.3 [place] # (Auto) 0.6 Eos # (Auto) 0.0 Baso # (Auto) 0.1 PT INR APTT pO2 VBG pH VBG pCO2 VBG HCO3 VBG Total CO2 VBG O2 Sat (Calc) VBG Base Excess VBG Potassium Glucose Lactate Sodium Potassium Chloride Carbon Dioxide Anion Gap BUN Creatinine Est GFR ( Amer) Est GFR (Non-Af Amer) POC Glucose (mg/dL) 249 H Random Glucose Calcium Total Bilirubin AST ALT Alkaline Phosphatase Total Protein Albumin Globulin Albumin/Globulin Ratio Lipase Venous Blood Potassium Urine Color Urine Clarity Urine pH Ur Specific [place] Urine Protein Urine Glucose (UA) Urine Ketones Urine Blood Urine Nitrate Urine Bilirubin Urine Urobilinogen Ur Leukocyte Esterase Urine WBC (Auto) Urine RBC (Auto) Ur Squamous Epith Cells Stool Occult Blood Positive H Blood Type Antibody Screen 06/04/18 06/04/18 06/04/18 04:00 07:09 10:12 WBC RBC Hgb Hct MCV MCH MCHC RDW Plt Count MPV Neut % (Auto) Lymph % (Auto) [place] % (Auto) Eos % (Auto) Baso % (Auto) Neut # (Auto) Lymph # (Auto) [place] # (Auto) Eos # (Auto) Baso # (Auto) PT INR APTT pO2 VBG pH VBG pCO2 VBG HCO3 VBG Total CO2 VBG O2 Sat (Calc) VBG Base Excess VBG Potassium Glucose Lactate Sodium 139 Potassium 4.6 Chloride 106 Carbon Dioxide 25 Anion Gap 13 BUN 18 H Creatinine 0.5 L Est GFR ( Amer) > 60 Est GFR (Non-Af Amer) > 60 POC Glucose (mg/dL) 178 H Random Glucose 218 H D Calcium 9.0 Total Bilirubin 0.6 AST 46 H ALT 61 H Alkaline Phosphatase 83 Total Protein 6.7 Albumin 3.8 Globulin 2.9 Albumin/Globulin Ratio 1.3 Lipase Venous Blood Potassium Urine Color Yellow Urine Clarity Hazy Urine pH 5.0 Ur Specific [place] 1.029 Urine Protein Negative Urine Glucose (UA) 3+ H Urine Ketones 1+ H Urine Blood 2+ H Urine Nitrate Negative Urine Bilirubin Negative Urine Urobilinogen Normal Ur Leukocyte Esterase Neg Urine WBC (Auto) 3 Urine RBC (Auto) 11 H Ur Squamous Epith Cells < 1 Stool Occult Blood Blood Type Antibody Screen 06/04/18 06/04/18 06/04/18 11:35 15:21 17:05 WBC 5.7 RBC 4.01 Hgb 12.0 Hct 35.0 MCV 87.3 MCH 30.1 MCHC 34.4 RDW 12.8 Plt Count 257 MPV 8.0 Neut % (Auto) Lymph % (Auto) [place] % (Auto) Eos % (Auto) Baso % (Auto) Neut # (Auto) Lymph # (Auto) [place] # (Auto) Eos # (Auto) Baso # (Auto) PT INR APTT pO2 VBG pH VBG pCO2 VBG HCO3 VBG Total CO2 VBG O2 Sat (Calc) VBG Base Excess VBG Potassium Glucose Lactate Sodium Potassium Chloride Carbon Dioxide Anion Gap BUN Creatinine Est GFR ( Amer) Est GFR (Non-Af Amer) POC Glucose (mg/dL) 143 H 121 H Random Glucose Calcium Total Bilirubin AST ALT Alkaline Phosphatase Total Protein Albumin Globulin Albumin/Globulin Ratio Lipase Venous Blood Potassium Urine Color Urine Clarity Urine pH Ur Specific [place] Urine Protein Urine Glucose (UA) Urine Ketones Urine Blood Urine Nitrate Urine Bilirubin Urine Urobilinogen Ur Leukocyte Esterase Urine WBC (Auto) Urine RBC (Auto) Ur Squamous Epith Cells Stool Occult Blood Blood Type Antibody Screen Attending/Attestation - Attestation I have personally seen and examined this patient.: Yes I have fully participated in the care of the patient.: Yes I have reviewed all pertinent clinical information: Yes Notes (Text): 06/04/18 17:41 I have seen and examined patient with GI fellow. Agree with above documentation with the following additions. In brief, this is a 72 year old female with history of HTN, CKD, DM, who presents to hospital with complaint of rectal b leeding which began yesterday evening at 7 pm. Prior to this she was in usual state of health. She underwent colonoscopy 6 days ago with resection of large 2 cm polyp requiring saline lift injection with hot snare removal, biopsies showed adenomatous polyp. She denies abdominal pain, nausea, vomiting, fever/chills, weight loss, or recurrent rectal bleeding since arrival to hospital yesterday. Review of vitals from today shows tachycardia. HTN CKD DM Rectal bleeding, s/p recent colonoscopy with large polyp resection - clinical concern for post polypectomy bleeding - Liquid diet as tolerated - Continue with IVF hydration, supportive care - H/H stable, continue to monitor - Given clinical scenario, patient advised it would be important to undergo repeat colonoscopy to treat suspected region of bleeding, however she is refusing repeat procedure at this time and prefers to have ongoing observation. I have explained the risks of this strategy including additional uncontrolled bleeding, decompensation, and potential . She understands and is willing to accept these risks and would prefer to be evaluated at a different hospital site should she have recurrent bleeding. - Will therefore respect patient wishes and continue with observation for the time being
[2018-06-04] MEDS ORDERED: (Novolin R) Insulin Human Regular 100 units/ml vial ONE (08:56)
[2018-06-04] MEDS ORDERED: Sodium Chloride 0.9% 1,000 ML ONE (09:22)
[2018-06-04] MEDS ORDERED: Albuterol-Ipratrop 3 mg / 0.5 (3 ml) UD INH PRN (09:52)
[2018-06-04] MEDS ORDERED: (Novolog) Insulin Aspart, Recombinant 100 u/ml 10 ml vial SC SCH (10:00)
[2018-06-04 10:48] LABS: SQUAMOUS EPITHIAL < 1 /hpf (0-5); URINE BILIRUBIN NEGATIVE (NEGATIVE); URINE BLOOD 2+ (NEGATIVE); URINE CLARITY Hazy (Clear); URINE COLOR Yellow (YELLOW); URINE GLUCOSE (UA) 3+ mg/dL (Normal); URINE LEUKOCYTE ESTERASE NEG Leu/uL (Negative); URINE PROTEIN NEGATIVE (NEGATIVE); URINE UROBILINOGEN NORMAL mg/dL (0.2-1.0)
--- NOTE | 2018-06-04 11:34 | CT ---
Date of service: 06/03/2018 PROCEDURE: CT abdomen pelvis HISTORY: Maroon stool, s/p colonoscopy, crampy abdominal pain COMPARISON: No prior study available comparison TECHNIQUE: Contiguous axial images of the abdomen and pelvis performed following intravenous injection of approximately 100 cc Omnipaque 300 contrast material sagittal reformats generated. Radiation dose: Total exam DLP = 919.95 mGy-cm. This CT exam was performed using one or more of the following dose reduction techniques: Automated exposure control, adjustment of the mA and/or kV according to patient size, and/or use of iterative reconstruction technique. FINDINGS: LOWER THORAX: Unremarkable. LIVER: Liver is mildly enlarged measuring over 19 cm in cc dimension. Mild diffuse fatty hepatic infiltration. There is a small approximately 8.8 mm elliptical shaped low-attenuation lesion left lobe liver with Hounsfield units register in the mid teens most likely representing a cyst the portal and splenic veins are opacified. GALLBLADDER AND BILE DUCTS: Unremarkable. PANCREAS: Pancreas appears slightly atrophic and fatty replaced. No obvious pancreatic mass or collection. SPLEEN: Unremarkable. No splenomegaly. ADRENALS: 2.3 cm left right adrenal mass. Follow-up nonemergent noncontrast MRI of the adrenal glands recommended. Slightly nodular appearing left adrenal gland. KIDNEYS AND URETERS: Kidneys demonstrate symmetric nephrograms. No evidence of nephrolithiasis or hydronephrosis. There are multiple rounded low-attenuation foci left kidney some of which are hyperdense likely representing hyperdense cysts. Left-sided renal cysts. There are few very tiny low-attenuation foci right kidney too small to characterize though likely representing cysts as well.. Follow-up renal ultrasound could be performed to confirm. BLADDER: Urinary bladder is physiologically distended. No evidence of intraluminal gallbladder calculi. REPRODUCTIVE: 2 cm left adnexal cyst. APPENDIX: Normal appendix. BOWEL: Evaluation of bowel is limited due to the lack of oral contrast material. Stomach is incompletely distended with thick-walled appearance. Visualized loops of small bowel exhibit contour caliber. No evidence of acute mechanical small bowel obstruction.. There are multiple loops nondistended loops of small bowel containing fluid some of which exhibit minimal wall thickening. The follow-up possibility of mild enteritis not excluded . There is a moderate amount of stool is seen within the cecum and ascending as well as proximal transverse colon. Scattered colonic diverticula seen along the sigmoid and to a lesser degree descending colon. No radiographic evidence of acute diverticulitis PERITONEUM: Unremarkable. No fluid collection. No free air. Small fat containing umbilical hernia. Bilateral fat containing inguinal hernias right slightly larger than left.. LYMPH NODES: Unremarkable. No enlarged lymph nodes. VASCULATURE: Unremarkable. No aortic aneurysm. Mild aortic atherosclerotic calcification or mural plaque present. BONES: No fracture or destructive lesion. OTHER FINDINGS: None. IMPRESSION: Hepatomegaly with probable small cyst left lobe liver 2.3 cm right adrenal mass for which follow-up nonemergent noncontrast MRI of the adrenal glands recommended. Diverticulosis without radiographic evidence acute diverticulitis. Rule out enteritis. There are presumed hyperdense left renal cyst. Several low-attenuation foci right kidney too small characterize though these probably represent cysts as well. Renal ultrasound follow-up performed further evaluation. 2 cm left adnexal cyst.
--- NOTE | 2018-06-04 12:41 | RAD ---
Date of service: 06/04/2018 HISTORY: Pre-admission baseline COMPARISON: No prior. TECHNIQUE: 1 view obtained. FINDINGS: LUNGS: No active pulmonary disease. PLEURA: No significant pleural effusion identified, no pneumothorax apparent. CARDIOVASCULAR: No aortic atherosclerotic calcification present. Normal cardiac size. No pulmonary vascular congestion. OSSEOUS STRUCTURES: No significant abnormalities. VISUALIZED UPPER ABDOMEN: Normal. OTHER FINDINGS: None. IMPRESSION: No active disease.
[2018-06-04 15:25] LABS: MEAN CELL VOLUME 87.3 fL (81.0-99.0); MEAN CORPUSCULAR HEMOGLOBIN 30.1 pg (27.0-31.0); MEAN CORPUSCULAR HGB CONC 34.4 g/dL (33.0-37.0); RBC 4.01 Mil/uL (3.80-5.20); RED CELL DISTRIBUTION WIDTH 12.8 % (11.5-14.5); WHITE BLOOD COUNT 5.7 K/uL (4.8-10.8)
[2018-06-04] MEDS: (Novolog) Insulin Aspart, Recombinant 100 u/ml 10 ml vial SC SCH ×2 (17:07→21:58)
[2018-06-04 23:00] LABS: HEMOGLOBIN 11.9 g/dL (11.0-16.0); MEAN CELL VOLUME 87.3 fL (81.0-99.0); MEAN CORPUSCULAR HEMOGLOBIN 29.3 pg (27.0-31.0); MEAN CORPUSCULAR HGB CONC 33.5 g/dL (33.0-37.0); MEAN PLATELET VOLUME 7.9 fL (7.2-11.7); RBC 4.05 Mil/uL (3.80-5.20)
[2018-06-05] MEDS: Sodium Chloride 0.9% 1,000 ML IV SCH ×3 (03:11→13:47)
[2018-06-05 08:13] VITALS: BP 132/70; RESP 18; TEMP 99.2; O2SAT 95
[2018-06-05] MEDS: (Novolog) Insulin Aspart, Recombinant 100 u/ml 10 ml vial SC SCH ×2 (08:37→13:09)
--- NOTE | 2018-06-05 08:39 | CP.PCM.PN ---
<Gricel Parson - Last Filed: 06/05/18 08:37> Subjective - Date & Time of Evaluation Date of Evaluation: 06/05/18 Time of Evaluation: 08:37 - Subjective Subjective: Gastroenterology Fellow/PGY6 Progress Note Patient feels well. Denies abdominal pain. Denies recurrent episodes of rectal bleeding. Tolerating liquid diet. A 12-point review of systems negative except for as above. Objective - Vital Signs/Intake and Output Vital Signs (last 24 hours): Temp Pulse Resp BP Pulse Ox 99.2 F 93 H 18 132/70 95 06/05/18 07:00 06/05/18 07:00 06/05/18 07:00 06/05/18 07:00 06/05/18 07:00 - Medications Medications: Current Medications Albuterol/Ipratropium (Duoneb 3 Mg/0.5 Mg (3 Ml) Ud) 3 ml INH RQ6 PRN PRN Reason: Shortness of Breath Dextrose (Dextrose 50% Inj) 0 ml IV STAT PRN; Protocol PRN Reason: Hypoglycemia Protocol Dextrose (Glutose 15) 0 gm PO ONCE PRN; Protocol PRN Reason: Hypoglycemia Protocol Dextrose (Dextrose 50% Inj) 0 ml IVP .STAT PRN; Protocol PRN Reason: Hypoglycemia Protocol Dextrose (Glutose 15) 0 gm PO .ONCE PRN; Protocol PRN Reason: Hypoglycemia Protocol Duloxetine HCl (Cymbalta) 60 mg PO DAILY [facility] Last Admin: 06/04/18 11:55 Dose: Not Given Glucagon (Glucagen Diagnostic Kit) 0 mg IM STAT PRN; Protocol PRN Reason: Hypoglycemia Protocol Glucagon (Glucagen Diagnostic Kit) 0 mg IM .STAT PRN; Protocol PRN Reason: Hypoglycemia Protocol Sodium Chloride (Sodium Chloride 0.9%) 1,000 mls @ 100 mls/hr IV .Q10H [facility] Last Admin: 06/05/18 07:07 Dose: 100 mls/hr Dextrose (Dextrose 5% In Water 1000 Ml) 1,000 mls @ 0 mls/hr IV .Q0M PRN; Protocol PRN Reason: Hypoglycemia Protocol Dextrose (Dextrose 5% In Water 1000 Ml) 1,000 mls @ 0 mls/hr IV .Q0M PRN; Prot ocol PRN Reason: Hypoglycemia Protocol Insulin Aspart (Novolog) 0 unit SC ACHS [facility]; Protocol Last Admin: 06/04/18 21:58 Dose: Not Given Lisinopril (Zestril) 2.5 mg PO DAILY [facility] Pantoprazole Sodium (Protonix Inj) 40 mg IVP Q12H [facility] Last Admin: 06/04/18 21:59 Dose: 40 mg Pneumococcal Polyvalent Vaccine (Pneumovax 23 Vaccine) 0.5 ml IM .ONCE ONE Stop: 06/06/18 10:01 Rosuvastatin Calcium (Crestor) 5 mg PO HS [facility] Last Admin: 06/04/18 21:58 Dose: 5 mg - Labs Labs: 06/04/18 22:57 06/04/18 04:00 PT 12.4 SECONDS (9.7-12.2) H 06/03/18 20:42 INR 1.1 06/03/18 20:42 APTT 30 SECONDS (21-34) 06/03/18 20:42 - Constitutional Appears: Non-toxic, No Acute Distress - Head Exam Head Exam: ATRAUMATIC, NORMOCEPHALIC - Eye Exam Eye Exam: EOMI, PERRL. absent: Scleral icterus Pupil Exam: PERRL. absent: Miosis, Mydriatic - ENT Exam ENT Exam: Mucous Membranes Moist, Normal Oropharynx - Neck Exam Neck Exam: Full ROM, Normal Inspection - Respiratory Exam Respiratory Exam: Clear to Ausculation Bilateral. absent: Rales, Rhonchi, Wheezes - Cardiovascular Exam Cardiovascular Exam: RRR, +S1, +S2. absent: Gallop, Rubs - GI/Abdominal Exam GI & Abdominal Exam: Soft, Normal Bowel Sounds. absent: Distended, Firm, Guarding, Rigid, Tenderness, Organomegaly, Rebound - Extremities Exam Extremities Exam: Normal Inspection. absent: Pedal Edema - Neurological Exam Neurological Exam: Alert, Awake - Psychiatric Exam Psychiatric exam: Normal Affect, Normal Mood - Skin Skin Exam: Dry, Intact, Normal Color, Warm Assessment and Plan - Assessment and Plan (Free Text) Assessment: 72 year old female with PMH of HTN, HLD, Diabetes, and CKD presenting with rectal bleeding in setting of recent colonoscopy on 05/30/18 showing fair bowel prep, extensive diverticulosis, two 3-4mm semi-pedunculated hyperplastic ascending/sigmoid polyps with cold forceps resection, 2cm sessile tubular adenoma with saline-lift/hot snare resection, and Grade II internal hemorrhoids. Plan: -concern for post-polypectomy bleeding -no further episodes of rectal bleeding since 630PM to 7PM on 06/03/18 -H/H shows decline but within normal hemoglobin parameters -repeat discussion held with patient on potential for polypectomy bleeding given large lesion of 2cm with recommendation for a second look colonoscopy with possible intervention if bleeding site confirm -patient adamantly refuses repeat procedure at this time and understands risks of deferring repeat colonoscopy including -tolerating clear liquid diet, advance to soft diet over next 24 hours to regular diet intake as tolerated -recommended to patient for outpatient GI follow up to re-assess symptoms and monitor for potent ial re-bleeding with need for endoscopic evaluation <Jonathan Sunshine - Last Filed: 06/05/18 09:40> Objective - Vital Signs/Intake and Output Vital Signs (last 24 hours): Temp Pulse Resp BP Pulse Ox 99.2 F 89 18 132/70 95 06/05/18 07:00 06/05/18 08:00 06/05/18 07:00 06/05/18 07:00 06/05/18 07:00 - Medications Medications: Current Medications Albuterol/Ipratropium (Duoneb 3 Mg/0.5 Mg (3 Ml) Ud) 3 ml INH RQ6 PRN PRN Reason: Shortness of Breath Dextrose (Dextrose 50% Inj) 0 ml IV STAT PRN; Protocol PRN Reason: Hypoglycemia Protocol Dextrose (Glutose 15) 0 gm PO ONCE PRN; Protocol PRN Reason: Hypoglycemia Protocol Dextrose (Dextrose 50% Inj) 0 ml IVP .STAT PRN; Protocol PRN Reason: Hypoglycemia Protocol Dextrose (Glutose 15) 0 gm PO .ONCE PRN; Protocol PRN Reason: Hypoglycemia Protocol Duloxetine HCl (Cymbalta) 60 mg PO DAILY [facility] Last Admin: 06/05/18 09:24 Dose: 60 mg Glucagon (Glucagen Diagnostic Kit) 0 mg IM STAT PRN; Protocol PRN Reason: Hypoglycemia Protocol Glucagon (Glucagen Diagnostic Kit) 0 mg IM .STAT PRN; Protocol PRN Reason: Hypoglycemia Protocol Sodium Chloride (Sodium Chloride 0.9%) 1,000 mls @ 100 mls/hr IV .Q10H [facility] Last Admin: 06/05/18 07:07 Dose: 100 mls/hr Dextrose (Dextrose 5% In Water 1000 Ml) 1,000 mls @ 0 mls/hr IV .Q0M PRN; Protocol PRN Reason: Hypoglycemia Protocol Dextrose (Dextrose 5% In Water 1000 Ml) 1,000 mls @ 0 mls/hr IV .Q0M PRN; Protocol PRN Reason: Hypoglycemia Protocol Insulin Aspart (Novolog) 0 unit SC ACHS [facility]; Protocol Last Admin: 06/05/18 08:37 Dose: 1 unit Lisinopril (Zestril) 2.5 mg PO DAILY [facility] Pantoprazole Sodium (Protonix Inj) 40 mg IVP Q12H [facility] Last Admin: 06/05/18 09:23 Dose: 40 mg Pneumococcal Polyvalent Vaccine (Pneumovax 23 Vaccine) 0.5 ml IM .ONCE ONE Stop: 06/06/18 10:01 Rosuvastatin Calcium (Crestor) 5 mg PO HS [facility] Last Admin: 06/04/18 21:58 Dose: 5 mg - Labs Labs: 06/05/18 08:26 06/05/18 08:26 PT 12.4 SECONDS (9.7-12.2) H 06/03/18 20:42 INR 1.1 06/03/18 20:42 APTT 30 SECONDS (21-34) 06/03/18 20:42 Attending/Attestation - Attestation I have personally seen and examined this patient.: Yes I have fully participated in the care of the patient.: Yes I have reviewed all pertinent clinical information, including history, physical exam and plan: Yes Notes (Text): 06/05/18 09:35 I have seen and examined patient with GI fellow. No acute events overnight, she denies abdominal pain, nausea, vomiting, fever/chills. No bowel movements over the past 36 hours. Tolerating PO liquids without difficulty. Review of vitals from today shows tachycardia. DM/HTN Hyperlipidemia CKD Rectal bleeding, thought to be secondary to post polypectomy given recent colonoscopy with large adenoma resection - Advance diet as tolerated - Continue to monitor H/H - Patient refusing additional endoscopic workup at this time as documented in initial consultation note. Will therefore continue with observation and if tolerating diet without recurrent bleeding, patient can be discharged home with subsequent outpatient follow up.
[2018-06-05 08:40] LABS: BASO # 0.1 K/uL (0.0-0.2); EOS # 0.1 K/uL (0.0-0.7); EOS % 0.9 % (0.0-4.0); HEMOGLOBIN 12.7 g/dL (11.0-16.0); LYMPH # 2.7 K/uL (1.0-4.3); LYMPH % 39.4 % (20.0-40.0); MEAN CELL VOLUME 87.7 fL (81.0-99.0); MEAN CORPUSCULAR HEMOGLOBIN 29.1 pg (27.0-31.0); MEAN CORPUSCULAR HGB CONC 33.2 g/dL (33.0-37.0); MEAN PLATELET VOLUME 8.2 fL (7.2-11.7); MONO # 0.5 K/uL (0.0-0.8); NEUT # 3.4 K/uL (1.8-7.0); NEUT % 50.7 % (50.0-75.0); NRBC % 0.1 % (0.0-2.0); RBC 4.37 Mil/uL (3.80-5.20); RED CELL DISTRIBUTION WIDTH 12.9 % (11.5-14.5); WHITE BLOOD COUNT 6.8 K/uL (4.8-10.8)
[2018-06-05 08:54] LABS: ALB/GLOB RATIO 1.2 (1.0-2.1); ALBUMIN 3.4 g/dL (3.5-5.0); ALT/SGPT 59 U/L (9-52); AST/SGOT 66 U/L (14-36); BLOOD UREA NITROGEN 9 mg/dL (7-17); CALCIUM 8.4 mg/dl (8.6-10.4); GFR NON-AFRICAN AMERICAN > 60
[2018-06-05 09:09] VITALS: PULSE 89
[2018-06-05 09:20] LABS: HEPATITIS B SURFACE AG Negative (NEGATIVE)
[2018-06-05 09:25] LABS: HEPATITIS A IGM NEGATIVE (NEGATIVE)
[2018-06-05 09:37] LABS: HEPATITIS C ANTIBODY NEGATIVE (NEGATIVE)
[2018-06-05 10:10] LABS: HEPATITIS B CORE AB NEGATIVE (NEGATIVE)
--- NOTE | 2018-06-05 14:59 | CP.PCM.DIS ---
<Omar Cabrera - Last Filed: 06/05/18 16:54> Provider - Provider Date of Admission: 06/03/18 21:35 Attending physician: Ankita Jennings DO Consults: 06/04/18 00:30 Gastroenterology Consult Routine Comment: Consulting Provider: Jonathan Sunshine Consulting Physician: Jonathan Sunshine Reason for Consult: GI bleed, colonoscopy 05/30 Time Spent in preparation of Discharge (in minutes): 35 Diagnosis - Discharge Diagnosis (1) GI bleed Status: Acute (2) Hypertension Status: Chronic (3) Diabetes mellitus Status: Chronic (4) Asthma, mild intermittent Status: Chronic (5) Depression Status: Chronic Hospital Course - Lab Results Lab Results: Most Recent Lab Values WBC 6.8 K/uL (4.8-10.8) 06/05/18 08:26 RBC 4.37 Mil/uL (3.80-5.20) 06/05/18 08:26 Hgb 12.7 g/dL (11.0-16.0) 06/05/18 08:26 Hct 38.3 % (34.0-47.0) 06/05/18 08:26 MCV 87.7 fL (81.0-99.0) 06/05/18 08:26 MCH 29.1 pg (27.0-31.0) 06/05/18 08:26 MCHC 33.2 g/dL (33.0-37.0) 06/05/18 08:26 RDW 12.9 % (11.5-14.5) 06/05/18 08:26 Plt Count 253 K/uL (130-400) 06/05/18 08:26 MPV 8.2 fL (7.2-11.7) 06/05/18 08:26 Neut % (Auto) 50.7 % (50.0-75.0) 06/05/18 08:26 Lymph % (Auto) 39.4 % (20.0-40.0) 06/05/18 08:26 [place] % (Auto) 8.0 % (0.0-10.0) 06/05/18 08:26 Eos % (Auto) 0.9 % (0.0-4.0) 06/05/18 08:26 Baso % (Auto) 1.0 % (0.0-2.0) 06/05/18 08: Neut # (Auto) 3.4 K/uL (1.8-7.0) 06/05/18 08: Lymph # (Auto) 2.7 K/uL (1.0-4.3) 06/05/18 08: [place] # (Auto) 0.5 K/uL (0.0-0.8) 06/05/18 08: Eos # (Auto) 0.1 K/uL (0.0-0.7) 06/05/18 08: Baso # (Auto) 0.1 K/uL (0.0-0.2) 06/05/18 08: PT 12.4 SECONDS (9.7-12.2) H 06/03/18 20:42 INR 1.1 06/03/18 20:42 APTT 30 SECONDS (21-34) 06/03/18 20:42 pO2 23 mm/Hg (30-55) L 06/03/18 20:55 VBG pH 7.30 (7.32-7.43) L 06/03/18 20:55 VBG pCO2 47 mmHg (40-60) 06/03/18 20:55 VBG HCO3 20.4 mmol/L 06/03/18 20:55 VBG Total CO2 24.5 mmol/L (22-28) 06/03/18 20:55 VBG O2 Sat (Calc) 44.1 % (40-65) 06/03/18 20:55 VBG Base Excess -3.6 mmol/L (0.0-2.0) L 06/03/18 20:55 VBG Potassium 4.3 mmol/L (3.6-5.2) 06/03/18 20:55 Sodium 138.0 mmol/l (132-148) 06/03/18 20:55 Chloride 105.0 mmol/L (98-107) 06/03/18 20:55 Glucose 278 mg/dl (65-105) H 06/03/18 20:55 Lactate 1.6 mmol/L (0.7-2.1) 06/03/18 20:55 Sodium 134 mmol/L (132-148) 06/05/18 08: Potassium 4.1 mmol/L (3.6-5.2) 06/05/18 08:26 Chloride 103 mmol/L (98-107) 06/05/18 08:26 Carbon Dioxide 22 mmol/L (22-30) 06/05/18 08:26 Anion Gap 13 (10-20) 06/05/18 08:26 BUN 9 mg/dL (7-17) 06/05/18 08:26 Creatinine 0.5 mg/dL (0.7-1.2) L 06/05/18 08:26 Est GFR ( Amer) > 60 06/05/18 08:26 Est GFR (Non-Af Amer) > 60 06/05/18 08:26 POC Glucose (mg/dL) 319 mg/dL (65-110) H 06/05/18 11:08 Random Glucose 192 mg/dL (65-105) H 06/05/18 08:26 Calcium 8.4 mg/dl (8.6-10.4) L 06/05/18 08:26 Phosphorus 2.6 mg/dL (2.5-4.5) 06/05/18 08:26 Magnesium 1.7 mg/dL (1.6-2.3) 06/05/18 08:26 Total Bilirubin 0.6 mg/dL (0.2-1.3) 06/05/18 08:26 AST 66 U/L (14-36) H D 06/05/18 08:26 ALT 59 U/L (9-52) H 06/05/18 08:26 Alkaline Phosphatase 86 U/L (38-126) 06/05/18 08:26 Total Protein 6.3 g/dL (6.3-8.3) 06/05/18 08:26 Albumin 3.4 g/dL (3.5-5.0) L 06/05/18 08:26 Globulin 2.9 gm/dL (2.2-3.9) 06/05/18 08:26 Albumin/Globulin Ratio 1.2 (1.0-2.1) 06/05/18 08:26 Lipase 176 U/L (23-300) 06/03/18 20:42 Venous Blood Potassium 4.3 mmol/L (3.6-5.2) 06/03/18 20:55 Urine Color Yellow (YELLOW) 06/04/18 10:12 Urine Clarity Hazy (Clear) 06/04/18 10:12 Urine pH 5.0 (5.0-8.0) 06/04/18 10:12 Ur Specific Yale 1.029 (1.003-1.030) 06/04/18 10:12 Urine Protein Negative mg/dL (NEGATIVE) 06/04/18 10:12 Urine Glucose (UA) 3+ mg/dL (Normal) H 06/04/18 10:12 Urine Ketones 1+ mg/dL (NEGATIVE) H 06/04/18 10:12 Urine Blood 2+ (NEGATIVE) H 06/04/18 10:12 Urine Nitrate Negative (NEGATIVE) 06/04/18 10:12 Urine Bilirubin Negative (NEGATIVE) 06/04/18 10:12 Urine Urobilinogen Normal mg/dL (0.2-1.0) 06/04/18 10:12 Ur Leukocyte Esterase Neg Cindy/uL (Negative) 06/04/18 10:12 Urine WBC (Auto) 3 /hpf (0-5) 06/04/18 10:12 Urine RBC (Auto) 11 /hpf (0-3) H 06/04/18 10:12 Ur Squamous Epith Cells < 1 /hpf (0-5) 06/04/18 10:12 Stool Occult Blood Positive (NEGATIVE) H 06/03/18 21:12 Hepatitis A IgM Ab Negative (NEGATIVE) 06/05/18 08:26 Hep Bs Antigen Negative (NEGATIVE) 06/05/18 08:26 Hep B Core IgM Ab Negative (NEGATIVE) 06/05/18 08:26 Hepatitis C Antibody Negative (NEGATIVE) 06/05/18 08:26 Blood Type O POSITIVE 06/03/18 20:42 Antibody Screen Negative 06/03/18 20:42 - Hospital Course Hospital Course: On admission: HPI: 72 year old female with PMHx of DM, previous [place], asthma presents to ED for evaluation of an episode of bloody diarrhea prior to arrival. Patient states half of the toilet bowel was filled with blood. Associated symptoms include mild lower abdominal cramping, weakness, and dizziness. She also had one episode of vomiting, non bloody, non bilious. Patient denies fever, chills, chest pain, palpitations, and shortness of breath. Patient is status post colonoscopy on 05/30/[address] Sunshine. She called his office and was told to come into ED. Hospital course: CT abdomen/pelvis (06/04/18): hepatomegaly with probable small cyst left lobe liver. 2.3 cm right adrenal mass for which follow-up nonemergent MRI of adrenal gland recommended. Diverticulosis without radiographic evidence of acute diverticulitis. Rule out enteritis. Presume hyperdense left renal cyst. CXR showed no active disease. Pt started on IVF, antihypertensives held, started on protonix drip as FOBT was positive. GI, Dr. Sunshine, consulted. Hgb on admission 14.0. GI evaluated the pt and discontinued protonix gtt. GI placed pt on liquid diet, and recommended repeat colonoscopy, which pt refused. Pt's Hgb decreased to 12 due to IVF, but remained stable. She continued to refuse colonoscopy during hospitalization, even though risks and benefits were explained to her and she was told that this was necessary due to rectal bleeding. She tolerated regular diet on day of discharge. She has not had any episodes of rectal bleeding during hospitalization. Her BP has been stable, and she has been asymptomatic. She is ambulatory without difficulties and denies any complaints. This is a summary of the hospital course. Please see EMR for full details. Discharge Exam - Head Exam Head Exam: ATRAUMATIC, NORMOCEPHALIC - Eye Exam Eye Exam: EOMI, Normal appearance - ENT Exam ENT Exam: Mucous Membranes Moist - Respiratory Exam Respiratory Exam: Clear to PA & Lateral. absent: Rales, Rhonchi, Wheezes, Respiratory Distress - Cardiovascular Exam Cardiovascular Exam: REGULAR RHYTHM, +S1, +S2. absent: Tachycardia, Diastolic murmur, Systolic Murmur - GI/Abdominal Exam GI & Abdominal Exam: Normal Bowel Sounds, Soft. absent: Distended, Firm, Guarding, Rebound, Rigid, Tenderness - Extremities Exam Extremities exam: normal capillary refill, normal inspection, pedal pulses present - Neurological Exam Neurological exam: Alert, Oriented x3 - Psychiatric Exam Psychiatric exam: Normal Affect, Normal Mood - Skin Skin Exam: Dry, Normal Color, Warm Discharge Plan - Follow Up Plan Condition: GOOD Disposition: HOME/ ROUTINE Instructions: [place] Diet, Gastrointestinal Bleeding (DC), Colonoscopy Additional Instructions: Pt is medically stable for discharge home as per Dr. Jennings. Pt should resume taking previously prescribed medications. Pt should follow up with PMD, Dr. Ervin, within 1 week of discharge home. Pt should follow up with Dr. Sunshine, or other GI physician, within 1 week of discharge home, and should call for repeat outpatient colonoscopy. Pt instructed not to take Aspirin, NSAIDs, alcohol as they can worsen bleeding. Should symptoms worsen, please go to the nearest Emergency Departement for further evaluation. Instruction explained the pt, who understands and agrees with discharge plan. Referrals: Rima Ervin MD [Staff Provider] - <Ankita Jennings V - Last Filed: 06/05/18 21:07> Provider - Provider Date of Admission: 06/03/18 21:35 Attending physician: Ankita Jennings DO Consults: 06/04/18 00:30 Gastroenterology Consult Routine Comment: Consulting Provider: Jonathan Sunshine Consulting Physician: Jonathan Sunshine Reason for Consult: GI bleed, colonoscopy 05/30 Hospital Course - Lab Results Lab Results: Most Recent Lab Values WBC 6.8 K/uL (4.8-10.8) 06/05/18 08:26 RBC 4.37 Mil/uL (3.80-5.20) 06/05/18 08:26 Hgb 12.7 g/dL (11.0-16.0) 06/05/18 08:26 Hct 38.3 % (34.0-47.0) 06/05/18 08:26 MCV 87.7 fL (81.0-99.0) 06/05/18 08:26 MCH 29.1 pg (27.0-31.0) 06/05/18 08:26 MCHC 33.2 g/dL (33.0-37.0) 06/05/18 08:26 RDW 12.9 % (11.5-14.5) 06/05/18 08:26 Plt Count 253 K/uL (130-400) 06/05/18 08:26 MPV 8.2 fL (7.2-11.7) 06/05/18 08:26 Neut % (Auto) 50.7 % (50.0-75.0) 06/05/18 08:26 Lymph % (Auto) 39.4 % (20.0-40.0) 06/05/18 08:26 Webster % (Auto) 8.0 % (0.0-10.0) 06/05/18 08: Eos % (Auto) 0.9 % (0.0-4.0) 06/05/18 08: Baso % (Auto) 1.0 % (0.0-2.0) 06/05/18 08: Neut # (Auto) 3.4 K/uL (1.8-7.0) 06/05/18 08: Lymph # (Auto) 2.7 K/uL (1.0-4.3) 06/05/18 08: Webster # (Auto) 0.5 K/uL (0.0-0.8) 06/05/18 08: Eos # (Auto) 0.1 K/uL (0.0-0.7) 06/05/18 08: Baso # (Auto) 0.1 K/uL (0.0-0.2) 06/05/18 08: PT 12.4 SECONDS (9.7-12.2) H 06/03/18 20:42 INR 1.1 06/03/18 20:42 APTT 30 SECONDS (21-34) 06/03/18 20:42 pO2 23 mm/Hg (30-55) L 06/03/18 20:55 VBG pH 7.30 (7.32-7.43) L 06/03/18 20:55 VBG pCO2 47 mmHg (40-60) 06/03/18 20:55 VBG HCO3 20.4 mmol/L 06/03/18 20:55 VBG Total CO2 24.5 mmol/L (22-28) 06/03/18 20:55 VBG O2 Sat (Calc) 44.1 % (40-65) 06/03/18 20:55 VBG Base Excess -3.6 mmol/L (0.0-2.0) L 06/03/18 20:55 VBG Potassium 4.3 mmol/L (3.6-5.2) 06/03/18 20:55 Sodium 138.0 mmol/l (132-148) 06/03/18 20:55 Chloride 105.0 mmol/L (98-107) 06/03/18 20:55 Glucose 278 mg/dl (65-105) H 06/03/18 20:55 Lactate 1.6 mmol/L (0.7-2.1) 06/03/18 20:55 Sodium 134 mmol/L (132-148) 06/05/18 08:26 Potassium 4.1 mmol/L (3.6-5.2) 06/05/18 08:26 Chloride 103 mmol/L (98-107) 06/05/18 08:26 Carbon Dioxide 22 mmol/L (22-30) 06/05/18 08:26 Anion Gap 13 (10-20) 06/05/18 08:26 BUN 9 mg/dL (7-17) 06/05/18 08:26 Creatinine 0.5 mg/dL (0.7-1.2) L 06/05/18 08:26 Est GFR ( Amer) > 60 06/05/18 08:26 Est GFR (Non-Af Amer) > 60 06/05/18 08:26 POC Glucose (mg/dL) 319 mg/dL (65-110) H 06/05/18 11:08 Random Glucose 192 mg/dL (65-105) H 06/05/18 08:26 Calcium 8.4 mg/dl (8.6-10.4) L 06/05/18 08:26 Phosphorus 2.6 mg/dL (2.5-4.5) 06/05/18 08:26 Magnesium 1.7 mg/dL (1.6-2.3) 06/05/18 08:26 Total Bilirubin 0.6 mg/dL (0.2-1.3) 06/05/18 08:26 AST 66 U/L (14-36) H D 06/05/18 08:26 ALT 59 U/L (9-52) H 06/05/18 08:26 Alkaline Phosphatase 86 U/L (38-126) 06/05/18 08:26 Total Protein 6.3 g/dL (6.3-8.3) 06/05/18 08:26 Albumin 3.4 g/dL (3.5-5.0) L 06/05/18 08:26 Globulin 2.9 gm/dL (2.2-3.9) 06/05/18 08:26 Albumin/Globulin Ratio 1.2 (1.0-2.1) 06/05/18 08:26 Lipase 176 U/L (23-300) 06/03/18 20:42 Venous Blood Potassium 4.3 mmol/L (3.6-5.2) 06/03/18 20:55 Urine Color Yellow (YELLOW) 06/04/18 10:12 Urine Clarity Hazy (Clear) 06/04/18 10:12 Urine pH 5.0 (5.0-8.0) 06/04/18 10:12 Ur Specific Yale 1.029 (1.003-1.030) 06/04/18 10:12 Urine Protein Negative mg/dL (NEGATIVE) 06/04/18 10:12 Urine Glucose (UA) 3+ mg/dL (Normal) H 06/04/18 10:12 Urine Ketones 1+ mg/dL (NEGATIVE) H 06/04/18 10:12 Urine Blood 2+ (NEGATIVE) H 06/04/18 10:12 Urine Nitrate Negative (NEGATIVE) 06/04/18 10:12 Urine Bilirubin Negative (NEGATIVE) 06/04/18 10:12 Urine Urobilinogen Normal mg/dL (0.2-1.0) 06/04/18 10:12 Ur Leukocyte Esterase Neg Cindy/uL (Negative) 06/04/18 10:12 Urine WBC (Auto) 3 /hpf (0-5) 06/04/18 10:12 Urine RBC (Auto) 11 /hpf (0-3) H 06/04/18 10:12 Ur Squamous Epith Cells < 1 /hpf (0-5) 06/04/18 10:12 Stool Occult Blood Positive (NEGATIVE) H 06/03/18 21:12 Hepatitis A IgM Ab Negative (NEGATIVE) 06/05/18 08:26 Hep Bs Antigen Negative (NEGATIVE) 06/05/18 08:26 Hep B Core IgM Ab Negative (NEGATIVE) 06/05/18 08:26 Hepatitis C Antibody Negative (NEGATIVE) 06/05/18 08:26 Blood Type O POSITIVE 06/03/18 20:42 Antibody Screen Negative 06/03/18 20:42 Attending/Attestation - Attestation I have personally seen and examined this patient.: Yes I have fully participated in the care of the patient.: Yes I have reviewed all pertinent clinical information, including history, physical exam and plan: Yes Notes (Text): Patient seen, examined, and case discussed with medical service technician. Patient seen this morning by GI. Patient reports she has not had bowel movement Patient has tolerated breakfast and lunch today. No adverse events noted. Patient reports she would like to go home. H/H stable. patient to follow-up with Dr. Sunshine as outpatient. Patient is aware if any adverse events such as bleeding to come immediately for evaluation. Patient advised to not take any NSAIDs, alcohol, aspirin to reduce bleeding risk. This is a summary of patient's hospitalization. Please refer to EMR for full detail of record. Discharge Diagnoses: 1. GI bleed (stable) Assessment/Plan * GI Dr. Sunshine on case help appreciated * Stool occult blood positive * Hgb 14--> 12 over 24 hrs * Monitor on telemetry * Type and screen * Clear liquid * Protonix 40 mg IV Q12H * NS @ 100 cc/hr * CT abdomen/pelvis (06/04/18): hepatomegaly with probable small cyst left lobe liver. 2.3 cm right adrenal mass for which follow-up nonemergent MRI of adrenal gland recommended. Diverticulosis without radiographic evidence of acute diverticulitis. Rule out enteritis. Presume hyperdense left renal cyst. 2. Hypertension, chronic Assessment/Plan * held kiran inhibitor in light of GI bleed * Resume medication upon discharge 3. Type 2 diabetes mellitus, chronic Assessment/Plan * Accuchecks Q6H * Hypoglycemia protocol * Novolog subq 6H * Diabetic clears * Crestor 5 mg PO QHS * Resume medications upon discharge 4. Asthma, mild intermittent, chronic Assessment/Plan * CXR: no active disease * Duoneb Q6H PRN shortness of breathe 5. History of Depression, chronic Assessment/Plan * Duloxetine 60 mg PO daily * Resume medication upon discharge 6. History of Prior [place] in 1993 Assessment/Plan * myocardial stress test 2018: normal myocardial perfusion study without evidence of ischemia, normal LVEF 7. Prophylactic measure * fall precautions * bed side commode * IV fluids * patient tolerating diet.
[2018-06-05] MEDS ORDERED: Pneumococcal 23-Valent Vaccine IM ONE (16:30)
[2018-06-06] MEDS ORDERED: Pneumococcal 23-Valent Vaccine IM ONE (10:00)
== END 2018-06-05 16:19 | disposition home or self-care (01) ==
LOC: C.ER 19:39 → C.9E 21:35 → C.5S 06-04 10:16
PROVIDERS: ADMIT Family Medicine; ATTEND Hospitalist
DX: K91.840 Postprocedural hemorrhage of a digestive system organ or structure following a digestive system procedure (principal); E11.22 Type 2 diabetes mellitus with diabetic chronic kidney disease; I12.9 Hypertensive chronic kidney disease with stage 1 through stage 4 chronic kidney disease, or unspecified chronic kidney disease; N18.9 Chronic kidney disease, unspecified; E78.00 Pure hypercholesterolemia, unspecified; F32.9 Major depressive disorder, single episode, unspecified; I25.2 Old myocardial infarction; J45.909 Unspecified asthma, uncomplicated; K92.1 Melena; Z87.891 Personal history of nicotine dependence; D50.0 Iron deficiency anemia secondary to blood loss (chronic); Y83.8 Other surgical procedures as the cause of abnormal reaction of the patient, or of later complication, without mention of misadventure at the time of the procedure
CPT/HCPCS: 36415; 71045; 74177; 80053; 80074; 81001; 82803; 82948; 83690; 83735; 84100; 85025; 85027; 85610; 85730; 86850; 86900; 96372; 96374; 97116; 97161; 97165; 97530; 99285; C9113; G0328; G0378; G8978; G8979; G8980; G8987; G8988; G8989; J7030; Q9967